=== PATIENT | male | born 1960 | race American Indian/Alaskan Native ===

== ENCOUNTER 2019-03-08 17:44 | Inpatient (IN) | payer OTHER ==
--- NOTE | 2019-03-08 18:12 | Emergency Department Report ---
Blank Doc - Documentation Documentation: 58 y/o male with pmh of NIDDM Was at PCP office today and advised to come to ED due to tachycardia. C/o of nausea, palpitations and sweats. Plan labs, cxr and Main
[2019-03-08 18:35] LABS: Basophils # (Auto) 0.1 K/mm3 (0.0-0.1); Basophils % (Auto) 0.6 % (0.0-1.8); Eosinophils # (Auto) 0.1 K/mm3 (0.0-0.4); Eosinophils % (Auto) 0.8 % (0.0-4.3); Hematocrit 37.4 % (35.5-45.6); Hemoglobin 12.9 gm/dl (11.8-15.2); Lymphocytes # (Auto) 1.4 K/mm3 (1.2-5.4); Lymphocytes % (Auto) 13.7 % (13.4-35.0); Mean Corpuscular HGB Conc 34 % (32-34); Mean Corpuscular Volume 90 fl (84-94); Monocytes % (Auto) 9.5 % (0.0-7.3); Platelet Count 310 K/mm3 (140-440); Red Blood Count 4.17 M/mm3 (3.65-5.03); Red Cell Distribution Width 14.9 % (13.2-15.2)
[2019-03-08 18:41] LABS: INR 1.16 (0.87-1.13)
[2019-03-08 19:23] LABS: Creatine Kinase MB 2.2 ng/mL (0.0-4.0)
[2019-03-08 19:36] LABS: Free T4 (Free Thyroxine) 1.16 ng/dL (0.76-1.46)
--- NOTE | 2019-03-08 20:23 | XRay Report ---
PROCEDURE: XR CHEST ROUTINE 2V TECHNIQUE: AP and lateral views of the chest were obtained HISTORY: palpitations COMPARISONS: FINDINGS: Cardiac and mediastinal contours are unremarkable. No focal pulmonary infiltrate identified. No pleur al fluid collection seen. Pulmonary vasculature is unremarkable. IMPRESSION: Negative two-view chest. This document is electronically signed by Viraj Bill MD., March 08 2019 08:21:02 PM ET
--- NOTE | 2019-03-08 20:56 | Emergency Department Report ---
ED Palpitations HPI - General Chief Complaint: Arrhythmia/Palpitations Stated Complaint: PALPATATION (HEART)COLD SWEAT Time Seen by Provider: 03/08/19 20:45 Source: patient Mode of arrival: Ambulatory Limitations: No Limitations - History of Present Illness Initial Comments: Patient is a 58-year-old male that presents emergency with complaints of palpit ations and tachycardia. Patient states she was seen at an urgent care and sent over here for further evaluation by Dr. Mishra. Patient states he's also having dyspnea on exertion and diaphoresis and nausea without vomiting. Patient states all the symptoms started yesterday and are worsening. Patient denies chest pain. Patient denies abdominal pain. Patient denies dizziness. Patient denies blurry vision. Patient states she has a history of hypertension and diabetes. MD Complaint: rapid heart beat, palpitations -: Sudden Context: occured during rest, occured during exertion Associated Symptoms: diaphoresis. denies: chest pain, syncope, near-syncope, cough, parasthesias, feeling of impending doom - Related Data Allergies Allergy/AdvReac Type Severity Reaction Status Date / Time No Known Allergies Allergy Unverified 03/08/19 18:13 ED Review of Systems ROS: Stated complaint: PALPATATION (HEART)COLD SWEAT Other details as noted in HPI Constitutional: diaphoresis. denies: chills, fever Eyes: denies: eye pain, eye discharge, vision change ENT: denies: ear pain, throat pain Respiratory: SOB with exertion. denies: cough, SOB at rest, wheezing Cardiovascular: palpitations. denies: chest pain Endocrine: no symptoms reported Gastrointestinal: nausea. denies: abdominal pain, vomiting, diarrhea Genitourinary: denies: urgency, dysuria Musculoskeletal: denies: back pain, joint swelling, arthralgia Skin: denies: rash, lesions Neurological: denies: headache, weakness, paresthesias Psychiatric: denies: anxiety, depression Hematological/Lymphatic: denies: easy bleeding, easy bruising ED Past Medical Hx - Past Medical History Previous Medical History?: Yes Hx Hypertension: Yes Hx Diabetes: Yes Additional medical history: acoustic neuroma - Surgical History Past Surgical History?: Yes Additional Surgical History: right acoustic neuroma - Family History Family history: no significant - Social History Smoking Status: Never Smoker Substance Use Type: Alcohol ED Physical Exam - General Limitations: No Limitations General appearance: alert, in no apparent distress - Head Head exam: Present: atraumatic, normocephalic - Eye Eye exam: Present: normal appearance - ENT ENT exam: Present: mucous membranes moist - Neck Neck exam: Present: normal inspection - Respiratory Respiratory exam: Present: normal lung sounds bilaterally. Absent: respiratory distress - Cardiovascular Cardiovascular Exam: Present: regular rate, normal rhythm. Absent: systolic murmur, diastolic murmur, rubs, gallop - GI/Abdominal GI/Abdominal exam: Present: soft, normal bowel sounds. Absent: distended, tenderness, guarding - Rectal Rectal exam: Present: deferred - Extremities Exam Extremities exam: Present: normal inspection - Back Exam Back exam: Present: normal inspection - Neurological Exam Neurological exam: Present: alert, oriented X3 - Psychiatric Psychiatric exam: Present: normal affect, normal mood - Skin Skin exam: Present: warm, dry, intact, normal color. Absent: rash ED Course Vital Signs 03/08/19 03/08/19 03/08/19 18:09 21:16 21:30 Temperature 97.7 F Pulse Rate 128 H 91 H 91 H Respiratory 18 19 19 Rate Blood Pressure 141/97 150/83 132/81 O2 Sat by Pulse 98 98 98 Oximetry 03/08/19 03/08/19 03/08/19 21:46 22:00 22:16 Temperature Pulse Rate 94 H 91 H 92 H Respiratory 20 20 18 Rate Blood Pressure 132/81 131/77 131/77 O2 Sat by Pulse 97 97 99 Oximetry 03/08/19 22:30 Temperature Pulse Rate 93 H Respiratory 12 Rate Blood Pressure 139/76 O2 Sat by Pulse 100 Oximetry - Reevaluation(s) Reevaluation #1: Discussed all results with patient. Patient agrees with plan of care and admission. 03/08/19 22:11 - Consultations Consultation #1: Discussed case with patient's primary care doctor. Dr. Mishra states to admit the patient to telemetry for observation. Bridge orders will be placed 03/08/19 20:56 Discussed case again with Dr. Mishra. 03/08/19 22:12 ED Medical Decision Making - Lab Data Result diagrams: 03/08/19 18:13 03/08/19 21:00 - EKG Data -: EKG Interpreted by [place] EKG shows normal: sinus rhythm, axis, intervals, QRS complexes, ST-T waves Rate: tachycardia - Medical Decision Making Patient is a 58-year-old male that presents to emergency with complaints of palpitations and tachycardia and dyspnea on exertion. Patient found to have sinus tach on EKG. Patient's labs unremarkable except for elevated creatinine. Patient given fluids. Heart rate improved. Patient's other labs unremarkable. - Differential Diagnosis tachycardia. Dehydration. SHAFFER. Palpitations Critical Care Time: Yes Critical care attestation.: If time is entered above; I have spent that time in minutes in the direct care of this critically ill patient, excluding procedure time. Critical Care Time: 35 minutes ED Disposition Clinical Impression: Tachycardia, Dehydration, SHAFFER (dyspnea on exertion), Nausea alone Disposition: OP ADMIT IP TO THIS HOSP Is pt being admited?: Yes Does the pt Need Aspirin: No Condition: Critical Time of Disposition: 22:13
[2019-03-08 22:00] LABS: Creatine Kinase MB 2.2 ng/mL (0.0-4.0)
[2019-03-08 22:03] LABS: Albumin 4.4 g/dL (3.9-5); Calcium 9.5 mg/dL (8.4-10.2)
[2019-03-08 23:11] LABS: Bilirubin,Urine NEG (Negative); Blood,Urine NEG (Negative); Color,Urine Amber (Yellow); Mucus,Urine FEW /HPF; WBC,Urine < 1.0 /HPF (0.0-6.0)
[2019-03-08 23:16] LABS: Amphetamine Screen,Urine PRESUMPTIVE NEGATIVE; Benzodiazepines Screen,Urine PRESUMPTIVE NEGATIVE; Cannabinoid Screen,Urine PRESUMPTIVE NEGATIVE; Cocaine Screen,Urine PRESUMPTIVE NEGATIVE; Methadone Screen,Urine PRESUMPTIVE NEGATIVE; Opiate Screen,Urine PRESUMPTIVE NEGATIVE
[2019-03-09] MEDS ORDERED: NACL 0.9% 1000 ML 1,000 ML IV ONE (03:00)
[2019-03-09] MEDS ORDERED: NACL 0.9% 1000 ML 1,000 ML ONE (04:07)
--- NOTE | 2019-03-09 07:10 | History and Physical Report ---
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 Patient who was seen in the Urgent Care was advised to proceed to the emergency department. Has occasional chest pain. No orthopnea or paroxysmal nocturnal dyspnea. Denies any polyuria, polydipsia or polyphagia. No fever, nausea, vomiting or abdominal pain. I did on presentation to the emergency department pulse was found to be 128. EKG shows sinus tachycardia. There are no ST segment changes. Blood sugar was 176. Total bilirubin was 2.0. Total CK was 309. Troponin T was 0.01. BNP was 22.7. TSH and T4 were normal. Urinalysis showed concentrated urine with urine specific gravity of 1.033. Glycosuria over 500. Urine drug screen was negative. Admission was therefore requested. Past History Past Medical History: diabetes, hypertension, other (palpitation ) Past Surgical History: No surgical history Social history: denies: smoking, alcohol abuse (however drinks occasionally), prescription drug abuse Family history: no significant family history Medications and Allergies Allergies Allergy/AdvReac Type Severity Reaction Status Date / Time No Known Allergies Allergy Unverified 03/08/19 18:13 Home Medications Medication Instructions Recorded Confirmed Last Taken Type Amlodipine-Valsartan 10-160 mg 03/09/19 Unknown History Atorvastatin 03/09/19 Unknown History Hydrochlorothiazide 03/09/19 Unknown History Xigduo Xr 5 mg-1,000 mg Tablet 03/09/19 Unknown History Active Meds: Review of systems Constitutional: Well Nourished and Well developed. Head: NC/ AT Eyes: Denies any visual impairments. No discharge from the eyes Nose: Denies any rhinorrhea or epistaxis Throats: Denies any post nasal drainage. Ears: Hearing deficits right ear from acoustic neuroma Cardiovascular system: Denies any chest pain, has palpitation with occasional shortness of breath, denies orthopnea, paroxysmal nocturnal dyspnea, Respiratory system: Denies any cough, difficulty breathing, wheezing, pleuritic chest pain, Gastrointestinal system: Denies any abdominal pain, nausea vomiting, hematemesis or melena. Neurological system: Denies any headache, slurred speech, facial droop, lateralizing weakness Genitalia system: Denies any dysuria, urinary frequency or urgency, urethral discharge Skin: No rashes, hyperpigmented spots. Hematological: Denies any cervical tenderness hemorrhages or petechia. Immunological: Denies any multiple septic spots, Lymphatic: Denies any generalized lymphadenopathy. Endocrine: Denies any polyuria, polydipsia, polyphagia. No heat or cold intolerance. Musculoskeletal system: No joint pain or swelling. Psych: No visual, tactile, auditory or hallucination Exam - Physical Exam Narrative exam: Constitutional: Well-nourished well-developed. In no distress Head: Normocephalic atraumatic Eyes: Pupils are equal round and reactive to light Nose: No enlarged turbinates, no septal deviation. Mouth: Moist mucous membranes. Neck: Supple no thyromegaly. No bruit. No JVD Heart: Regular rate and rhythm, S1-S2 normal. No rubs murmurs or gallop Lungs: Clear to auscultation bilaterally. no rales or rhonchi Abdomen: Soft, nontender. Bowel sound are present. Extremities: No edema, no cyanosis, no clubbing. Neuro: Alert oriented Oriented x3. No focal sensory or motor deficit. Skin: No rashes or hyperpigmented spots Musculoskeletal system: No joint pain or swelling Hematological: No petechia or subcutanous hemorrhages. Immunological: No multiple septic spots on the skin Lymphatic: No generalized lymphadenopathy Psychiatry: Euthymic. Calm. - Constitutional Vitals: Temp Pulse Resp BP Pulse Ox 97.7 F 93 H 12 139/76 100 03/08/19 18:09 03/08/19 22:30 03/08/19 22:30 03/08/19 22:30 03/08/19 22:30 Results - Labs CBC & Chem 7: 03/10/19 04:58 03/10/19 04:58 Labs: Abnormal lab results 03/08/19 03/08/19 03/08/19 Range/Units 18:13 18:13 18:13 [place] % (Auto) 9.5 H (0.0-7.3) % [place] # 1.0 H (0.0-0.8) K/mm3 Seg Neutrophils % 75.4 H (40.0-70.0) % Seg Neutrophils # 7.8 H (1.8-7.7) K/mm3 PT 15.5 H (12.2-14.9) Sec. INR 1.16 H (0.87-1.13) Carbon Dioxide (22-30) mmol/L Glucose (75-100) mg/dL Total Bilirubin (0.1-1.2) mg/dL Alkaline Phosphatase (35-129) units/L Total Creatine Kinase 309 H (55-170) units/L Ur Specific [place] (1.003-1.030) 03/08/19 03/08/19 03/08/19 Range/Units 21:00 21:00 22:40 [place] % (Auto) (0.0-7.3) % [place] # (0.0-0.8) K/mm3 Seg Neutrophils % (40.0-70.0) % Seg Neutrophils # (1.8-7.7) K/mm3 PT (12.2-14.9) Sec. INR (0.87-1.13) Carbon Dioxide 20 L (22-30) mmol/L Glucose 176 H (75-100) mg/dL Total Bilirubin 2.00 H (0.1-1.2) mg/dL Alkaline Phosphatase 199 H (35-129) units/L Total Creatine Kinase 270 H (55-170) units/L Ur Specific [place] 1.033 H (1.003-1.030) Assessment and Plan 58-year-old male with a history of diabetes mellitus and acoustic neuroma right ear who was seen in urgent care center for palpitation and diaphoresis and occasional chest discomfort. Referred to emergency room side [facility]. - Chest discomforts Serial cardiac enzymes were normal EKG shows sinus tachycardia Recommendation on oxygen and nitroglycerin and aspirin and morphine. Stress thallium. Echocardiogram.\ -Palpitation with shortness of breath EKG shows sinus tachycardia TSH and T4 were normal Urine drug screen was normal Continue with IV hydration - Dehydration Urine concentrated with elevated specific gravity IV hydration - Hyperbilirubinemia IV hydration Hypatobiliary ultrasound Trend - Type 2 diabetes mellitus A1c done in the urgent care center yesterday for 03/08/19 was 6.5% Sliding scale insulin Consistent carbohydrates diet - History of acoustic neuroma and hearing loss right ear Stable - DVT Prophylaxis with Lovenox and GI Pepcid CODE STATUS: Full code Time spent 35 minutes
[2019-03-09 08:12] LABS: Basophils # (Auto) 0.1 K/mm3 (0.0-0.1); Basophils % (Auto) 0.8 % (0.0-1.8); Eosinophils # (Auto) 0.1 K/mm3 (0.0-0.4); Eosinophils % (Auto) 1.4 % (0.0-4.3); Hemoglobin 11.3 gm/dl (11.8-15.2); Lymphocytes # (Auto) 1.3 K/mm3 (1.2-5.4); Lymphocytes % (Auto) 16.7 % (13.4-35.0); Mean Corpuscular HGB Conc 33 % (32-34); Mean Corpuscular Volume 91 fl (84-94); Monocytes # (Auto) 0.9 K/mm3 (0.0-0.8); Platelet Count 270 K/mm3 (140-440); Red Blood Count 3.74 M/mm3 (3.65-5.03); Red Cell Distribution Width 14.4 % (13.2-15.2)
[2019-03-09 08:22] LABS: INR 1.17 (0.87-1.13)
[2019-03-09 08:34] LABS: BUN/Creatinine Ratio 15; Blood Urea Nitrogen 16 mg/dL (9-20); Calcium 8.8 mg/dL (8.4-10.2); Chol/HDL Ratio 2.47 %; HDL Cholesterol 44 mg/dL (40-59); Hemolysis Index 3; LDL Cholesterol,Direct 58 mg/dL (50-130)
[2019-03-09] MEDS ORDERED: LEXISCAN IV ONE ×2 (10:45→11:35)
--- NOTE | 2019-03-09 13:46 | Event Note ---
Date: 03/09/19 Detailed cardiology consultation dictated. Pt presented with c/o dyspnea, palpitations, diaphoresis, n/v. S/p lexiscan MPI stress test this AM which was negative. Echo reviewed with no gross abnormalities. Pt noted to be in persistent sinus tachycardia. DDimer elevated. Obtain chest CTA to r/o PE. Candy GONZALES NP / DR. HERNANDEZ
[2019-03-09] MEDS: ZESTRIL PO SCH (15:00)
[2019-03-09] MEDS: LOVENOX SUB-Q SCH (15:00)
[2019-03-09] MEDS: NACL 0.45% 1000 ML 2,000 ML IV SCH (23:28)
--- NOTE | 2019-03-09 23:29 | Cat Scan Report ---
PROCEDURE: CT ANGIO CHEST TECHNIQUE: Computerized tomographic angiography of the chest was performed after the IV injection of iodinated nonionic contrast including image processing. The image data was postprocessed using 2-di mensional multiplanar reformatted (MPR) and 3-dimensional (MIP and/or volume rendered) techniques. Au tomated exposure control, adjustment of mA and/or kV according to patient size, or iterative reconstr uction dose optimization techniques were utilized. HISTORY: SOB, palpitations, tachycardia, elevated DDimer COMPARISONS: None . FINDINGS: Heart and pericardium: Normal. Thoracic aorta: Normal. Pulmonary vasculature: There is no evidence of pulmonary arterial emboli. Lymph nodes: No enlarged thoracic lymph nodes. Lungs: The lungs are clear. No infiltrate, effusion or pneumothorax. The central airway is patent. Pleural space: No effusion, thickening, or pneumothorax. Musculoskeletal structures: No significant abnormality. Upper abdominal structures: The liver size is normal. There is mixed attenuation and some nodularity identified exterior right lobe of the liver as well as portion of the left lobe liver. Not completel y evaluated on this study. Further evaluation of upper abdomen utilizing CT with and without contrast appropriate. The size of the head of pancreas is slightly pronounced with an area of hypoattenuation identified. Further imaging of the pancreatic head is also recommended... IMPRESSION: There is no evidence of pulmonary arterial emboli. The lungs are clear without infiltrate, effusion or pneumothorax. Nodularity and mixed attenuation within the liver is identified. This is not fully evaluated on this study. Further evaluation with a dedicated multiphasic abdomen and pelvis CT with and without contras t is recommended. The head of pancreas is slightly pronounced in size with an area of hypoattenuation identified. This is also not fully evaluated on this study. . The above findings are discussed with patient's floor nurse Neli at the time of dictation [id number] [facility] standard time on 03/09/2019 This document is electronically signed by Ana Paula Freeman DO., March 09 2019 11:27:22 PM ET
--- NOTE | 2019-03-10 05:54 | Consultation ---
ROOM NUMBER: [id number]. CONSULTATION REQUESTED BY: Rosie Mishra MD CONSULTING PHYSICIAN: Dr. Candy Osorio. HISTORY OF PRESENT ILLNESS: This is a 58-year-old -Polish male, who is now presenting to the hospital with complaints of palpitations for further evaluation and management. The patient states that on Saturday that is the day before, he woke up with palpitations when his heart was racing. He felt weak and tired. He did not have any chest pain or shortness of breath. No abdominal pain, nausea, vomiting. He had profuse diaphoresis and later, he felt a little nauseous, but no vomiting. His symptoms persisted for a while, so he was resting at home. He seems to feel a little bit better, but then the symptoms became worse in the night. So, he decided to stay home and go to the urgent care in the morning, which he did. The patient was evaluated in the urgent care and was sent to the Emergency Room for further evaluation and management. On arrival in the Emergency Room, the patient was noted to have a heart rate of 128 beats per minute and he continued to complain of feeling weak, tired and continued to complain of palpitations, but no chest pain or shortness of breath. No dizziness or syncope. Diaphoresis noted. The patient remains tachycardic. No prior history of similar episodes. PAST MEDICAL HISTORY: The patient does give history of hypertension and hyperlipidemia for which he is on medication. He also gives history of prediabetes. PAST SURGICAL HISTORY: History of acoustic neuroma in the past. The patient denied any fever or chills. No coughing or wheezing. FAMILY HISTORY: Positive for heart problems in his father, mother and sister. SOCIAL HISTORY: The patient is retired. He is a nonsmoker and nonalcoholic. ALLERGIES: None known to medications. MEDICATIONS: At the time of admission, the patient was on his blood pressure medication and statin. REVIEW OF SYSTEMS: CARDIOVASCULAR: As described above. RESPIRATORY: The patient denies any history of wheezing or asthma. No GI or complaints at the present time. PHYSICAL EXAMINATION: GENERAL: This is a 58-year-old -Polish male, well-built, well nourished, in no acute distress at the present time. The patient is conscious, alert, oriented, afebrile. VITAL SIGNS: Normal and stable. SKIN: Warm and dry. HEENT: Pupils are reactive. NECK: Supple. Both carotids are well palpable without any evidence of bruit. No JVD. CHEST: Lungs are clear. HEART: S1, S2 heard well. No significant murmur or gallop. Tachycardia noted. ABDOMEN: Soft and nontender. Bowel sounds present. EXTREMITIES: No edema, no calf tenderness. Good peripheral pulses. NEUROLOGIC: Evaluation was grossly within normal limits. RECTAL: Examination not done at this time. IMAGING: EKG done showed sinus tachycardia, otherwise, normal ECG. LABORATORY DATA: The patient's hemoglobin was 12.9, hematocrit 37.4 with WBC count of 10,400. The patient's BMP showed a BUN of 19, creatinine 1.5 and sodium was 138, potassium 4.4 and blood sugar was 176. The patient's bilirubin was mildly elevated at 2.0. Glucose was 136. Alkaline phosphatase was mildly elevated at 199. CK is normal. The patient's troponins were within normal limits. IMPRESSION: 1. Palpitations ? cause. 2. Mild chest discomfort. 3. Dehydration. 4. Hyperbilirubinemia. 5. Hypertension. 6. Hyperlipidemia. 7. History of prediabetes. 8. History of acoustic neuroma. PLAN: This is a 58-year-old -Polish male with history of hypertension, hyperlipidemia and prediabetes, who is now presenting to the hospital with complaints of palpitations or sudden onset for further evaluation and management. The patient had profuse diaphoresis with that. He does not have any complaint of chest pain or shortness of breath. EKG showed no acute changes. Enzymes were negative. We will proceed with stress thallium test as ordered to rule out a cardiac etiology. We will check the echocardiogram to assess his LV function, etc. Since the patient is not really anemic and thyroid function is normal, I do not have a definite explanation for persistent tachycardia. We will consider doing a CT scan of the chest to rule out pulmonary embolism. Prior to that, we will obtain a D-dimer, and if it is abnormal, we will proceed with CT scan of the chest to rule out pulmonary embolism. I have discussed all this in detail with the patient. Pros and cons noted. We will follow the patient along with you. JOB# [id number] MORA/MICHA
[2019-03-10 05:58] LABS: Basophils % (Auto) 0.8 % (0.0-1.8); Eosinophils # (Auto) 0.1 K/mm3 (0.0-0.4); Eosinophils % (Auto) 2.4 % (0.0-4.3); Hematocrit 31.5 % (35.5-45.6); Hemoglobin 10.5 gm/dl (11.8-15.2); Lymphocytes # (Auto) 1.1 K/mm3 (1.2-5.4); Lymphocytes % (Auto) 18.1 % (13.4-35.0); Mean Corpuscular HGB Conc 33 % (32-34); Mean Corpuscular Volume 92 fl (84-94); Monocytes # (Auto) 0.7 K/mm3 (0.0-0.8); Monocytes % (Auto) 10.9 % (0.0-7.3); Platelet Count 285 K/mm3 (140-440); Red Blood Count 3.45 M/mm3 (3.65-5.03); Red Cell Distribution Width 14.4 % (13.2-15.2)
[2019-03-10 06:25] LABS: BUN/Creatinine Ratio 13; Blood Urea Nitrogen 13 mg/dL (9-20); Calcium 9.1 mg/dL (8.4-10.2); Hemolysis Index 2
[2019-03-10 06:56] LABS: Alanine Aminotransferase 25 units/L (7-56); Albumin 3.3 g/dL (3.9-5)
--- NOTE | 2019-03-10 08:25 | Progress Note ---
Assessment and Plan 58-year-old male with a history of diabetes mellitus and acoustic neuroma right ear who was seen in urgent care center for palpitation and diaphoresis and occasional chest discomfort. Referred to emergency room [facility]. - Chest discomforts Normla Lesxiscan test EKG shows sinus tachycardia Echocardiogram - showed LVEF of 55-60% with impaired relaxation. -Palpitation with shortness of breath EKG shows sinus tachycardia TSH and T4 were normal Urine drug screen was normal CTA chest was negative for PE however showed hepatic nodularities Continue with IV hydration - Multipled mixed nodularity and attenuation of the liver with enlarged head of pancreas identified on CTA chest done b/c of elevated D-dimer CT abdomen and pelvis with contrast ordered - Dehydration Urine concentrated with elevated specific gravity IV hydration - Hyperbilirubinemia improved seciondary to mixed nodularity Continue IV hydration - Type 2 diabetes mellitus A1c done in the urgent care center yesterday for 03/08/19 was 6.5% Sliding scale insulin Consistent carbohydrates diet - History of acoustic neuroma and hearing loss right ear Stable - DVT Prophylaxis with Lovenox and GI Pepcid CODE STATUS: Full code Time spent 30 minutes Subjective Date of service: 03/10/19 Principal diagnosis: chest discomfort, palpitation and diaphoresis Interval history: No more chest pain. No orthorpnea or PND Objective - Exam Narrative Exam: Constitutional: Well-nourished well-developed. In no distress Head: Normocephalic atraumatic Eyes: Pupils are equal round and reactive to light Nose: No enlarged turbinates, no septal deviation. Mouth: Moist mucous membranes. Neck: Supple no thyromegaly. No bruit. No JVD Heart: Regular rate and rhythm, S1-S2 normal. No rubs murmurs or gallop Lungs: Clear to auscultation bilaterally. no rales or rhonchi Abdomen: Soft, nontender. Bowel sound are present. Extremities: No edema, no cyanosis, no clubbing. Neuro: Alert oriented Oriented x3. No focal sensory or motor deficit. Skin: No rashes or hyperpigmented spots Musculoskeletal system: No joint pain or swelling Hematological: No petechia or subcutanous hemorrhages. Immunological: No multiple septic spots on the skin Lymphatic: No generalized lymphadenopathy Psychiatry: Euthymic. Calm. - Constitutional Vitals: Vital Signs - 12hr 03/09/19 03/10/1919 20:50 00:00 04:36 Temperature 99.0 F 98.0 F Pulse Rate 99 H 98 H Pulse Rate [ 80 Apical] Respiratory 20 20 Rate Blood Pressure 123/80 123/79 O2 Sat by Pulse 98 97 100 Oximetry - Labs CBC & Chem 7: 03/10/19 04:58 03/10/19 04:58 Labs: Abnormal lab results 03/09/19 03/09/19 03/09/19 Range/Units 08:03 08:03 08:03 RBC (3.65-5.03) M/mm3 Hgb (11.8-15.2) gm/dl Hct (35.5-45.6) % [place] % (Auto) (0.0-7.3) % Lymph # (1.2-5.4) K/mm3 PT 15.6 H (12.2-14.9) Sec. INR 1.17 H (0.87-1.13) D-Dimer 2972.81 H (0-234) ng/mlDDU Sodium 136 L (137-145) mmol/L Carbon Dioxide (22-30) mmol/L Glucose 154 H (75-100) mg/dL Total Bilirubin (0.1-1.2) mg/dL Alkaline Phosphatase (35-129) units/L Albumin (3.9-5) g/dL 03/10/19 03/10/19 Range/Units 04:58 04:58 RBC 3.45 L (3.65-5.03) M/mm3 Hgb 10.5 L (11.8-15.2) gm/dl Hct 31.5 L (35.5-45.6) % [place] % (Auto) 10.9 H (0.0-7.3) % Lymph # 1.1 L (1.2-5.4) K/mm3 PT (12.2-14.9) Sec. INR (0.87-1.13) D-Dimer (0-234) ng/mlDDU Sodium 136 L (137-145) mmol/L Carbon Dioxide 21 L (22-30) mmol/L Glucose 131 H (75-100) mg/dL Total Bilirubin 1.30 H (0.1-1.2) mg/dL Alkaline Phosphatase 190 H (35-129) units/L Albumin 3.3 L (3.9-5) g/dL
[2019-03-10] MEDS: LOVENOX SUB-Q SCH (09:59)
[2019-03-10] MEDS: SODIUM CHLORIDE FLUSH SYRINGE 10 ML IV PRN (09:59)
[2019-03-10] MEDS: ECOTRIN PO SCH (10:27)
[2019-03-10] MEDS: ZESTRIL PO SCH (10:28)
[2019-03-10] MEDS: NACL 0.45% 1000 ML 2,000 ML IV SCH (10:31)
--- NOTE | 2019-03-10 10:46 | Progress Note ---
Assessment and Plan S/p lexiscan MPI stress test yesterday which was negative. Echo reviewed with no gross abnormalities. Sinus tachycardia improved. Chest CTA negative for PE, other incidental findings in abdomen noted. Abdomen CT pending. Currently stable cardiac status. Pt may discharge home from cardiology standpoint. Primary team to f/u abdomen CT. Recommend pt follow up in our office with Dr. Osorio within 1-2 weeks of hospital discharge ([phone]). The patient has been seen in conjunction with Dr. Osorio who agrees with the assessment and plan of care. - Patient Problems (1) Chest pain Current Visit: Yes Status: Resolved (2) Palpitations Current Visit: Yes Status: Acute (3) Hyperbilirubinemia Current Visit: Yes Status: Acute (4) HTN (hypertension) Current Visit: Yes Status: Chronic (5) Hyperlipidemia Current Visit: Yes Status: Chronic (6) Pre-diabetes Current Visit: Yes Status: Chronic (7) Acoustic neuroma Current Visit: Yes Status: Chronic (8) Dehydration Current Visit: Yes Status: Acute Subjective Date of service: 03/10/19 Principal diagnosis: chest discomfort, palpitation and diaphoresis Interval history: pt resting in bed, no current cardiac complaints. in SR on tele. Objective Last Vital Signs Temp 99.4 F 03/10/19 09:11 Pulse 97 H 03/10/19 10:28 Resp 18 03/10/19 09:11 BP 141/74 03/10/19 10:28 Pulse Ox 98 03/10/19 09:04 - Physical Examination General: No Apparent Distress HEENT: Positive: PERRL, Normocephaly, Mucus Membranes Moist Neck: Positive: neck supple, trachea midline Cardiac: Positive: Reg Rate and Rhythm, S1/S2 Lungs: Positive: clear to auscultation Neuro: Positive: Grossly Intact Abdomen: Positive: Soft. Negative: Tender Skin: Negative: Rash Musculoskeletal: No Pain - Labs and Meds Cardiac Enzymes 03/10/19 Range/Units 04:58 AST 34 (5-40) units/L CBC 03/10/19 Range/Units 04:58 WBC 6.1 (4.5-11.0) K/mm3 RBC 3.45 L (3.65-5.03) M/mm3 Hgb 10.5 L (11.8-15.2) gm/dl Hct 31.5 L (35.5-45.6) % Plt Count 285 (140-440) K/mm3 Lymph # 1.1 L (1.2-5.4) K/mm3 [place] # 0.7 (0.0-0.8) K/mm3 Eos # 0.1 (0.0-0.4) K/mm3 Baso # 0.0 (0.0-0.1) K/mm3 Comprehensive Metabolic Panel 03/10/19 Range/Units 04:58 Sodium 136 L (137-145) mmol/L Potassium 3.9 (3.6-5.0) mmol/L Chloride 99.9 (98-107) mmol/L Carbon Dioxide 21 L (22-30) mmol/L BUN 13 (9-20) mg/dL Creatinine 1.0 (0.8-1.5) mg/dL Glucose 131 H (75-100) mg/dL Calcium 9.1 (8.4-10.2) mg/dL AST 34 (5-40) units/L ALT 25 (7-56) units/L Alkaline Phosphatase 190 H (35-129) units/L Total Protein 6.8 (6.3-8.2) g/dL Albumin 3.3 L (3.9-5) g/dL - Telemetry EKG Rhythm: Sinus Rhythm
[2019-03-11 05:51] LABS: Basophils # (Auto) 0.1 K/mm3 (0.0-0.1); Basophils % (Auto) 1.5 % (0.0-1.8); Eosinophils # (Auto) 0.2 K/mm3 (0.0-0.4); Eosinophils % (Auto) 4.4 % (0.0-4.3); Hematocrit 30.7 % (35.5-45.6); Hemoglobin 10.2 gm/dl (11.8-15.2); Lymphocytes % (Auto) 20.9 % (13.4-35.0); Mean Corpuscular HGB Conc 33 % (32-34); Mean Corpuscular Volume 91 fl (84-94); Monocytes # (Auto) 0.6 K/mm3 (0.0-0.8); Monocytes % (Auto) 12.8 % (0.0-7.3); Platelet Count 288 K/mm3 (140-440); Red Blood Count 3.38 M/mm3 (3.65-5.03); Red Cell Distribution Width 14.3 % (13.2-15.2)
[2019-03-11 06:17] LABS: Alanine Aminotransferase 58 units/L (7-56); Albumin 3.1 g/dL (3.9-5); BUN/Creatinine Ratio 11; Blood Urea Nitrogen 13 mg/dL (9-20); Calcium 8.9 mg/dL (8.4-10.2); Hemolysis Index 0
--- NOTE | 2019-03-11 09:24 | Progress Note ---
Assessment and Plan 58-year-old male with a history of diabetes mellitus and acoustic neuroma right ear who was seen in urgent care center for palpitation and diaphoresis and occasional chest discomfort. Referred to emergency room [facility]. + EKG 03/08/19: Showed sinus tachycardia at 144/min + Lexiscan stress test 03/09/19: Showed no evidence of ischemia + Echocardiogram 03/09/19: Normal left ventricular function and ejection fraction of 55-60% with impaired relaxation + CT angiomata 03/09/19: Showed multiple nodularititie and attenuation in the liver with enlarged head of pancreas - Chest discomforts Normal Lesxiscan test EKG shows sinus tachycardia Echocardiogram - showed LVEF of 55-60% with impaired relaxation. -Palpitation with shortness of breath EKG shows sinus tachycardia TSH and T4 were normal Urine drug screen was normal CTA chest was negative for PE however showed hepatic nodularities Continue with IV hydration - Multipled mixed nodularity and attenuation of the liver with enlarged head of pancreas identified on CTA chest done b/c of elevated D-dimer CT abdomen and pelvis with contrast ordered. f/u with report. 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 No orthorpnea or PND. Objective - Exam Narrative Exam: Constitutional: Well-nourished well-developed. In no distress Head: Normocephalic atraumatic Eyes: Pupils are equal round and reactive to light Nose: No enlarged turbinates, no septal deviation. Mouth: Moist mucous membranes. Neck: Supple no thyromegaly. No bruit. No JVD Heart: Regular rate and rhythm, S1-S2 normal. No rubs murmurs or gallop Lungs: Clear to auscultation bilaterally. no rales or rhonchi Abdomen: Soft, nontender. Bowel sound are present. Extremities: No edema, no cyanosis, no clubbing. Neuro: Alert oriented Oriented x3. No focal sensory or motor deficit. Skin: No rashes or hyperpigmented spots Musculoskeletal system: No joint pain or swelling Hematological: No petechia or subcutanous hemorrhages. Immunological: No multiple septic spots on the skin Lymphatic: No generalized lymphadenopathy Psychiatry: Euthymic. Calm. - Constitutional Vitals: Vital Signs - 12hr 03/10/19 03/11/19 03/11/19 23:33 04:12 08:15 Temperature 99.2 F 97.0 F L 98.3 F Pulse Rate 97 H 95 H 95 H Respiratory 18 18 16 Rate Blood Pressure 133/72 133/77 143/82 O2 Sat by Pulse 96 96 98 Oximetry - Labs CBC & Chem 7: 03/11/19 04:47 03/11/19 04:47 Labs: Abnormal lab results 03/10/19 03/10/19 03/10/19 Range/Units 09:06 11:54 21:28 RBC (3.65-5.03) M/mm3 Hgb (11.8-15.2) gm/dl Hct (35.5-45.6) % [place] % (Auto) (0.0-7.3) % Eos % (Auto) (0.0-4.3) % Lymph # (1.2-5.4) K/mm3 Sodium (137-145) mmol/L Carbon Dioxide (22-30) mmol/L Glucose (75-100) mg/dL POC Glucose 131 H 197 H 138 H (70-105) AST (5-40) units/L ALT (7-56) units/L Alkaline Phosphatase (35-129) units/L Albumin (3.9-5) g/dL 03/11/19 03/11/19 03/11/19 Range/Units 04:47 04:47 08:01 RBC 3.38 L (3.65-5.03) M/mm3 Hgb 10.2 L (11.8-15.2) gm/dl Hct 30.7 L (35.5-45.6) % [place] % (Auto) 12.8 H (0.0-7.3) % Eos % (Auto) 4.4 H (0.0-4.3) % Lymph # 1.0 L (1.2-5.4) K/mm3 Sodium 136 L (137-145) mmol/L Carbon Dioxide 21 L (22-30) mmol/L Glucose 150 H (75-100) mg/dL POC Glucose 131 H (70-105) AST 64 H (5-40) units/L ALT 58 H (7-56) units/L Alkaline Phosphatase 282 H (35-129) units/L Albumin 3.1 L (3.9-5) g/dL
[2019-03-11] MEDS: LOVENOX SUB-Q SCH (10:27)
[2019-03-11] MEDS: ECOTRIN PO SCH (10:27)
[2019-03-11] MEDS: ZESTRIL PO SCH (10:27)
--- NOTE | 2019-03-11 20:25 | Cat Scan Report ---
PROCEDURE: CT ABDOMEN PELVIS WO/W CON TECHNIQUE: Computerized axial tomography of the abdomen and pelvis was performed before and after th e IV injection of 100 mL iodinated nonionic contrast. Automated exposure control, adjustment of mA an d/or kV according to patient size, or iterative reconstruction dose optimization techniques were util ized. CT DOSE LENGTH PRODUCT: 4765.8 mGycm HISTORY: Follow up COMPARISONS: None . FINDINGS: There is evidence of hepatomegaly with multiple large irregular inhomogeneously enhancing mass lesion s predominantly involving the right lobe largest measuring 9.2 x 8.9 cm. There is also partial involv ement of the segment 4. Spleen, pancreas and adrenal glands are within normal limits. Left kidney is located in the pelvis without any obstructive uropathy. Right kidney is slightly malrotated without a ny obstructive uropathy. Aorta is of normal caliber. There is no free fluid or free air. Gallbladder is unremarkable. Small bowel loops are within normal limits. There is an eccentric irregular mass les ion involving the sigmoid colon measuring 3.2 x 2.8 cm with small foci of calcification. Appendix is normal. Vertebral height is normal. Moderate degree of degenerative changes are noted involving the l umbar spine. IMPRESSION: A sigmoid mass lesion is suspicious for malignancy. Multiple hepatic lesions are suspicious for metastatic disease. Hepatomegaly is noted. 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
[2019-03-12] MEDS: LOVENOX SUB-Q SCH (09:04)
[2019-03-12] MEDS: ECOTRIN PO SCH (09:04)
[2019-03-12] MEDS: ZESTRIL PO SCH (09:05)
--- NOTE | 2019-03-12 09:19 | Progress Note ---
Assessment and Plan 58-year-old male with a history of diabetes mellitus and acoustic neuroma right ear who was seen in urgent care center for palpitation and diaphoresis and occasional chest discomfort. Referred to emergency room [facility]. + EKG 03/08/19: Showed sinus tachycardia at 144/min + Lexiscan stress test 03/09/19: Showed no evidence of ischemia + Echocardiogram 03/09/19: Normal left ventricular function and ejection fraction of 55-60% with impaired relaxation + CT angio 03/09/19: Showed multiple nodularity and attenuation in the liver with enlarged head of pancreas. CT abdomen and pelvis adviced for rachelle eval + CT abdomen and pelvis showed sigmoid colon mass with possible mets to the liver - Sigmoid mass with possible mets to the liver Discussed with and consulted GI. - Chest discomfort Normal Lesxiscan test EKG shows sinus tachycardia Echocardiogram - showed LVEF of 55-60% with impaired relaxation. -Palpitation with shortness of breath EKG shows sinus tachycardia TSH and T4 were normal Urine drug screen was normal CTA chest was negative for PE however showed hepatic nodularities Continue with IV hydration - Multipled mixed nodularity and attenuation of the liver with enlarged head of pancreas identified on CTA chest done b/c of elevated D-dimer CT abdomen and pelvis with contrast ordered. f/u with report. 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 Time spent 30 minutes Subjective Date of service: 03/12/19 Principal diagnosis: chest discomfort, palpitation and diaphoresis Interval history: No more chest pain all palpitation. No orthorpnea or PND. CT abdomen and pelvis showed sigmoid tumor Objective - Exam Narrative Exam: Constitutional: Well-nourished well-developed.In no distress Head: Normocephalic atraumatic Eyes: Pupils are equal round and reactive to light Nose: No enlarged turbinates, no septal deviation. Mouth: Moist mucous membranes. Neck: Supple no thyromegaly. No bruit. No JVD Heart: Regular rate and rhythm, S1-S2 normal. No rubs murmurs or gallop Lungs: Clear to auscultation bilaterally. no rales or rhonchi Abdomen: Soft, nontender. Bowel sound are present. Extremities: No edema, no cyanosis, no clubbing. Neuro: Alert oriented Oriented x3. No focal sensory or motor deficit. Skin: No rashes or hyperpigmented spots Musculoskeletal system: No joint pain or swelling Hematological: No petechia or subcutanous hemorrhages. Immunological: No multiple septic spots on the skin Lymphatic: No generalized lymphadenopathy Psychiatry: Euthymic. Calm. - Constitutional Vitals: Vital Signs - 12hr 03/12/19 03/12/19 03/12/19 00:29 04:30 08:07 Temperature 98.2 F 98.5 F 98.4 F Pulse Rate 96 H 85 89 Respiratory 18 18 20 Rate Blood Pressure 134/67 137/83 138/84 O2 Sat by Pulse 100 99 98 Oximetry 03/12/19 09:05 Temperature Pulse Rate 89 Respiratory Rate Blood Pressure 138/84 O2 Sat by Pulse Oximetry - Labs CBC & Chem 7: 03/11/19 04:47 03/11/19 04:47 Labs: Abnormal lab results 03/11/19 03/11/19 Range/Units 12:18 16:24 POC Glucose 198 H 184 H (70-105)
--- NOTE | 2019-03-12 11:16 | Gastroenterology Consultation ---
<ROBB BUTCHER - Last Filed: 03/12/19 11:32> History of Present Illness - Reason for Consult Consult date: 03/12/19 colon mass with possible mets to liver Requesting physician: DUANE MARTIN - History of Present Illness Patient is a 58 y/o male with PMH of DM, HTN, and acoustic neuroma right ear who presented to ED with c/o palpitations/tachycardia with associated chest discomfort, SOB, nausea, and diaphoresis. Upon admission, EKG showed sinus tachycardia and cardiac workup was found to be negative for ischemia (stress test 03/09 negative). He then underwent a CTA chest/abdomen/pelvis to r/o PE that showed a sigmoid colon mass with concern for mets to the liver to which GI has been consulted. This morning patient was resting in bed w/o acute distress. He reports wt loss of approximately 20lbs over the past year with occasional co nstipation with a scant amount of bright red blood noted on TP after BMs if straining required. No current constipation or active bleeding. No change in stool caliber. Denies fever, CP, abdominal pain, N/V, jaundice, hematemesis, melena, rectal pain, or diarrhea. Tolerating diet. No prior colonoscopy. No known Fhx of colon CA. Past History Past Medical History: diabetes, hypertension, other (palpitation ) Past Surgical History: Other (right acoustic neuroma) Social history: denies: smoking, alcohol abuse (however drinks occasionally), prescription drug abuse Family history: no significant family history Medications and Allergies Allergies Allergy/AdvReac Type Severity Reaction Status Date / Time No Known Allergies Allergy Unverified 03/08/19 18:13 Home Medications Medication Instructions Recorded Confirmed Last Taken Type Amlodipine-Valsartan 10-160 mg 10 - 160 mg PO Q24HR 03/09/19 03/11/19 03/07/19 09:00 History Atorvastatin 20 mg PO HS MDD 20 03/09/19 03/11/19 03/11/19 History Xigduo Xr 5 mg-1,000 mg Tablet 5 - 1,000 mg PO Q24HR 03/09/19 03/11/19 03/07/19 09:00 History Active Meds: Active Medications Aspirin (Ecotrin) 325 mg PO QDAY [facility] Last Admin: 03/12/19 09:04 Dose: 325 mg Documented by: Enoxaparin Sodium (Lovenox) 40 mg SUB-Q QDAY [facility] Last Admin: 03/12/19 09:04 Dose: 40 mg Documented by: Lisinopril (Zestril) 5 mg PO QDAY [facility] Last Admin: 03/12/19 09:05 Dose: 5 mg Documented by: Sodium Chloride (Sodium Chloride Flush Syringe 10 Ml) 10 ml IV PRN PRN PRN Reason: LINE FLUSH Last Admin: 03/10/19 09:59 Dose: 10 ml Documented by: medications reviewed/updated as required Review of Systems - Review of Systems All systems: negative Gastrointestinal: constipation, BRBPR Exam - Constitutional Vital Signs: Temp Pulse Resp BP Pulse Ox 98.4 F 89 20 138/84 98 03/12/19 08:07 03/12/19 09:05 03/12/19 08:07 03/12/19 09:05 03/12/19 08:07 General appearance: no acute distress - EENT Eyes: PERRL, EOM intact ENT: hearing intact - Respiratory Respiratory: bilateral: CTA - Cardiovascular Rhythm: regular - Gastrointestinal General gastrointestinal: Present: soft, non-tender, non-distended, normal bowel sounds - Neurologic Neurological: alert and oriented x3 - Labs CBC & Chem 7: 03/11/19 04:47 03/11/19 04:47 Lab Results: Laboratory Results - last 24 hr 03/11/19 03/11/19 12:18 16:24 POC Glucose 198 H 184 H Assessment and Plan 1.abnormal CT 2.colon mass with possible mets to the liver -H/H 10.2/30.7-no active signs of bleeding -LFTs-AST 64, ALT 58, Alk phos 282, T.luzma 1.20 -abd CT-showed sigmoid mass lesion suspicious for malignancy and multiple hepatic lesions suspicious for metastatic disease -will schedule for a colonoscopy tomorrow for further evaluation -clear liquids today, then NPO after MN -continue supportive care -will follow <DE BOWMAN - Last Filed: 03/12/19 20:32> Medications and Allergies Active Meds: Active Medications Aspirin (Ecotrin) 325 mg PO QDAY [facility] Last Admin: 03/12/19 09:04 Dose: 325 mg Documented by: Enoxaparin Sodium (Lovenox) 40 mg SUB-Q QDAY [facility] Last Admin: 03/12/19 09:04 Dose: 40 mg Documented by: Lisinopril (Zestril) 5 mg PO QDAY [facility] Last Admin: 03/12/19 09:05 Dose: 5 mg Documented by: Sodium Chloride (Sodium Chloride Flush Syringe 10 Ml) 10 ml IV PRN PRN PRN Reason: LINE FLUSH Last Admin: 03/10/19 09:59 Dose: 10 ml Documented by: Exam - Constitutional Vital Signs: Temp Pulse Resp BP Pulse Ox 98.2 F 87 20 148/91 100 03/12/19 16:09 03/12/19 16:09 03/12/19 16:09 03/12/19 16:09 03/12/19 16:09 - Labs CBC & Chem 7: 03/11/19 04:47 03/11/19 04:47 Assessment and Plan Patient seen and examined. I have reviewed the advanced practitioner's evaluation, assessment, and plan, and agree with them. I note the following additions: Patient admitted with chest discomfort, SOB, nausea, and diaphoresis, but found to have sigmoid colon mass with likely mets to liver. abd exam is benign (soft, +BS), with no evidence for obstruction. Therefore plan on colonoscopy tomorrow for tissue diagnosis and tattooing of the lesion in case required for surgical intervention as well as to ensure no synchronous lesions
[2019-03-12] MEDS ORDERED: GOLYTELY PO ONE (14:00)
--- NOTE | 2019-03-13 08:40 | Progress Note ---
Assessment and Plan 58-year-old male with a history of diabetes mellitus and acoustic neuroma right ear who was seen in urgent care center for palpitation and diaphoresis and occasional chest discomfort. Referred to emergency room [facility]. + EKG 03/08/19: Showed sinus tachycardia at 144/min + Lexiscan stress test 03/09/19: Showed no evidence of ischemia + Echocardiogram 03/09/19: Normal left ventricular function and ejection fraction of 55-60% with impaired relaxation + CT angio 03/09/19: Showed multiple nodularity and attenuation in the liver with enlarged head of pancreas. CT abdomen and pelvis adviced for rachelle eval + CT abdomen and pelvis showed sigmoid colon mass with possible mets to the liver - Sigmoid mass with possible mets to the liver Discussed with and consulted GI. For colonoscopy today - Chest discomfort Normal Lesxiscan test EKG shows sinus tachycardia Echocardiogram - showed LVEF of 55-60% with impaired relaxation. -Palpitation with shortness of breath EKG shows sinus tachycardia TSH and T4 were normal Urine drug screen was normal CTA chest was negative for PE however showed hepatic nodularities Continue with IV hydration - Multipled mixed nodularity and attenuation of the liver with enlarged head of pancreas identified on CTA chest done b/c of elevated D-dimer CT abdomen and pelvis with contrast ordered. f/u with report. 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 Time spent 30 minutes Subjective Date of service: 03/13/19 Principal diagnosis: chest discomfort, palpitation and diaphoresis Interval history: No more chest pain all palpitation. No orthorpnea or PND. CT abdomen and pelvis showed sigmoid tumor. Objective - Exam Narrative Exam: Constitutional: Well-nourished well-developed.In no distress Head: Normocephalic atraumatic Eyes: Pupils are equal round and reactive to light Nose: No enlarged turbinates, no septal deviation. Mouth: Moist mucous membranes. Neck: Supple no thyromegaly. No bruit. No JVD Heart: Regular rate and rhythm, S1-S2 normal. No rubs murmurs or gallop Lungs: Clear to auscultation bilaterally. no rales or rhonchi Abdomen: Soft, nontender. Bowel sound are present. Extremities: No edema, no cyanosis, no clubbing. Neuro: Alert oriented Oriented x3. No focal sensory or motor deficit. Skin: No rashes or hyperpigmented spots Musculoskeletal system: No joint pain or swelling Hematological: No petechia or subcutanous hemorrhages. Immunological: No multiple septic spots on the skin Lymphatic: No generalized lymphadenopathy Psychiatry: Euthymic. Calm. - Constitutional Vitals: Vital Signs - 12hr 03/12/19 03/13/19 03/13/19 22:00 03:34 04:00 Temperature 97.9 F Pulse Rate 84 83 Respiratory 18 18 Rate Blood Pressure 149/78 O2 Sat by Pulse 99 Oximetry 03/13/19 08:30 Temperature 98.4 F Pulse Rate 92 H Respiratory 20 Rate Blood Pressure 155/86 O2 Sat by Pulse 96 Oximetry - Labs CBC & Chem 7: 03/11/19 04:47 03/11/19 04:47 Labs: Abnormal lab results 03/13/19 Range/Units 08:01 POC Glucose 122 H (70-105)
[2019-03-13] MEDS: NACL 0.9% 1000 ML 1,000 ML IV SCH ×2 (10:16→17:59)
--- NOTE | 2019-03-13 11:36 | Operative Report ---
Operative Report Operative Report: DATE OF SERVICE: 03/13/19 SURGEON: Keshawn Sanchez MD COLONOSCOPY with snare polypectomy REPORT PREOPERATIVE AND POSTOPERATIVE DIAGNOSIS: Abnormal CT of the abdomen (Sigmoid mass) DESCRIPTION OF PROCEDURE: The colonoscope was passed to the cecum as identified by the ileocecal valve and appendiceal orifice.. Scope was carefully withdrawn. Retroflexion was performed in the rectum. At the end of procedure, the scope was cleaned using normal technique. Vital signs monitored continuously throughout. SEDATION: Provided by Anesthesiology Services. Quality of the prep was adequate. COMPLICATIONS: None. ESTIMATED BLOOD LOSS: minimal FINDINGS: * Scattered diverticulosis of the entire colon * 15mm semi-sessile polyp of the sigmoid colon. Ceompletely resected using saline injection-lift (2cc NS) and hot snare polypectomy. The post polypectomy site was closed using a single hemoclip to prevent bleeding * The opposite side of the colon at the level of the polyp (About 40cm from anus) was edematous. Biopsies taken * Small internal hemorrhoids * Remainder of the exam was normal RECOMMENDATIONS: * f/u path results, likely repeat colonoscopy 3 years * suspect the lucretia-polyp edema caused thickening of the appearance of the sigmoid colon on imaging which gave the appearance of a sigmoid mass. There is no endoscopic evidence for colon cancer * Oncology may consider CT-guided biopsy of the liver lesions if oncology feels there is still a chance for malignancy. * From GI perspective patient can be discharged with outpatient follow-up * We will sign off, please feel free to call back with any questions * I spoke with the patient and called his sister on the phone and informed them of these results
[2019-03-13] MEDS ORDERED: DIPRIVAN 10 MG/ML IV ONE ×2 (13:18)
[2019-03-13] MEDS: LOVENOX SUB-Q SCH (14:10)
[2019-03-13] MEDS: ECOTRIN PO SCH (14:11)
[2019-03-13] MEDS: ZESTRIL PO SCH (17:58)
--- NOTE | 2019-03-14 03:12 | Treadmill Report ---
IV LEXISCAN PHARMACOLOGICAL STRESS TESTING REPORT The patient underwent pharmacological stress testing with IV Lexiscan. The patient has myocardial perfusion imaging using technetium pyrophosphate tetrofosmin. Perfusion images were obtained during rest and also following post-dilation with IV Lexiscan. Also, gated study was performed post-stress. Following findings were noted. Perfusion images showed normal perfusion, post-vasodilation and at stress. Transient ischemic dilation ratio was found to be 0.97. Normal size left ventricle with normal contractility noted. Ejection fraction was calculated to be 58%. FINAL IMPRESSION: 1. Normal myocardial perfusion scan. 2. Normal left ventricular systolic function with normal sized left ventricle, ejection fraction 58%. 3. This is a low risk study for future cardiac events. JOB# [id number] MARTHA/MICHA ROGERS
[2019-03-14] MEDS: LOVENOX SUB-Q SCH (10:38)
[2019-03-14] MEDS: ZESTRIL PO SCH (10:38)
[2019-03-14] MEDS: ECOTRIN PO SCH (10:38)
[2019-03-14] MEDS: SODIUM CHLORIDE FLUSH SYRINGE 10 ML IV PRN (10:39)
--- NOTE | 2019-03-14 12:42 | Progress Note ---
Assessment and Plan 58-year-old male with a history of diabetes mellitus and acoustic neuroma right ear who was seen in urgent care center for palpitation and diaphoresis and occasional chest discomfort. Referred to emergency room [facility]. + EKG 03/08/19: Showed sinus tachycardia at 144/min + Lexiscan stress test 03/09/19: Showed no evidence of ischemia + Echocardiogram 03/09/19: Normal left ventricular function and ejection fraction of 55-60% with impaired relaxation + CT angio 03/09/19: Showed multiple nodularity and attenuation in the liver with enlarged head of pancreas. CT abdomen and pelvis adviced for rachelle eval + CT abdomen and pelvis showed sigmoid colon mass with possible mets to the liver + Colonoscopy 03/13/19 report: Scattered diverticulosis of the entire colon * 15mm semi-sessile polyp of the sigmoid colon. Ceompletely resected using saline injection-lift (2cc NS) and hot snare polypectomy. The post polypectomy site was closed using a single hemoclip to prevent bleeding * The opposite side of the colon at the level of the polyp (About 40cm from anus) was edematous. Biopsies taken - Multipled mixed nodularity and attenuation of the right lobe of the liver suggestive of mets For Liver biospy. Discussed with IR. Pt to be kept NPO and d/c anticoagulant - Chest discomfort - resolved Normal Lesxiscan test EKG shows sinus tachycardia Echocardiogram - showed LVEF of 55-60% with impaired relaxation. 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 Time spent 35 minutes Subjective Date of service: 03/14/19 Principal diagnosis: chest discomfort, palpitation and diaphoresis Interval history: No more chest pain all palpitation. No orthorpnea or PND. CT abdomen and pelvis showed sigmoid tumor with possible met tothe liver. Colonoscopy showed no tumor but an extrinsic mass Objective - Exam Narrative Exam: Constitutional: Well-nourished well-developed. In no distress Head: Normocephalic atraumatic Eyes: Pupils are equal round and reactive to light Nose: No enlarged turbinates, no septal deviation. Mouth: Moist mucous membranes. Neck: Supple no thyromegaly. No bruit. No JVD Heart: Regular rate and rhythm, S1-S2 normal. No rubs murmurs or gallop Lungs: Clear to auscultation bilaterally. no rales or rhonchi Abdomen: Soft, nontender. Bowel sound are present. Extremities: No edema, no cyanosis, no clubbing. Neuro: Alert oriented Oriented x3. No focal sensory or motor deficit. Skin: No rashes or hyperpigmented spots Musculoskeletal system: No joint pain or swelling Hematological: No petechia or subcutanous hemorrhages. Immunological: No multiple septic spots on the skin Lymphatic: No generalized lymphadenopathy Psychiatry: Euthymic. Calm. - Constitutional Vitals: Vital Signs - 12hr 03/14/19 03/14/19 03/14/19 04:05 08:52 10:00 Temperature 98.6 F 99.0 F Pulse Rate 84 94 H Respiratory 12 16 Rate Blood Pressure 136/83 158/96 O2 Sat by Pulse 99 96 98 Oximetry - Labs CBC & Chem 7: 03/11/19 04:47 03/11/19 04:47 Labs: Abnormal lab results 03/13/19 03/13/19 03/14/19 Range/Units 16:11 21:03 11:33 POC Glucose 182 H 143 H 234 H (70-105)
[2019-03-14 13:06] LABS: Basophils # (Auto) 0.1 K/mm3 (0.0-0.1); Basophils % (Auto) 2.4 % (0.0-1.8); Eosinophils # (Auto) 0.3 K/mm3 (0.0-0.4); Hematocrit 35.1 % (35.5-45.6); Hemoglobin 11.4 gm/dl (11.8-15.2); Lymphocytes % (Auto) 20.9 % (13.4-35.0); Mean Corpuscular HGB Conc 33 % (32-34); Mean Corpuscular Volume 92 fl (84-94); Monocytes # (Auto) 0.4 K/mm3 (0.0-0.8); Monocytes % (Auto) 7.6 % (0.0-7.3); Platelet Count 375 K/mm3 (140-440); Red Cell Distribution Width 14.6 % (13.2-15.2)
[2019-03-14 13:34] LABS: Alanine Aminotransferase 57 units/L (7-56); Albumin 3.6 g/dL (3.9-5); BUN/Creatinine Ratio 8; Blood Urea Nitrogen 9 mg/dL (9-20); Calcium 9.2 mg/dL (8.4-10.2); Hemolysis Index 12
[2019-03-15 07:13] LABS: Basophils % (Auto) 0.5 % (0.0-1.8); Eosinophils # (Auto) 0.5 K/mm3 (0.0-0.4); Eosinophils % (Auto) 8.8 % (0.0-4.3); Hematocrit 35.4 % (35.5-45.6); Hemoglobin 11.6 gm/dl (11.8-15.2); Lymphocytes # (Auto) 1.2 K/mm3 (1.2-5.4); Mean Corpuscular HGB Conc 33 % (32-34); Mean Corpuscular Volume 93 fl (84-94); Monocytes # (Auto) 0.4 K/mm3 (0.0-0.8); Monocytes % (Auto) 7.3 % (0.0-7.3); Platelet Count 385 K/mm3 (140-440); Red Cell Distribution Width 14.6 % (13.2-15.2)
[2019-03-15 07:38] LABS: Alanine Aminotransferase 52 units/L (7-56); Albumin 3.3 g/dL (3.9-5); BUN/Creatinine Ratio 9; Blood Urea Nitrogen 10 mg/dL (9-20); Calcium 9.1 mg/dL (8.4-10.2); Hemolysis Index 5
[2019-03-15 07:53] LABS: INR 0.95 (0.87-1.13)
[2019-03-15] MEDS: ZESTRIL PO SCH (13:21)
--- NOTE | 2019-03-15 13:37 | Progress Note ---
Assessment and Plan 58-year-old male with a history of diabetes mellitus and acoustic neuroma right ear who was seen in urgent care center for palpitation and diaphoresis and occasional chest discomfort. Referred to emergency room [facility]. + EKG 03/08/19: Showed sinus tachycardia at 144/min + Lexiscan stress test 03/09/19: Showed no evidence of ischemia + Echocardiogram 03/09/19: Normal left ventricular function and ejection fraction of 55-60% with impaired relaxation + CT angio 03/09/19: Showed multiple nodularity and attenuation in the liver with enlarged head of pancreas. CT abdomen and pelvis adviced for rachelle eval + CT abdomen and pelvis showed sigmoid colon mass with possible mets to the liver + Colonoscopy 03/13/19 report: Scattered diverticulosis of the entire colon * 15mm semi-sessile polyp of the sigmoid colon. Ceompletely resected using saline injection-lift (2cc NS) and hot snare polypectomy. The post polypectomy site was closed using a single hemoclip to prevent bleeding * The opposite side of the colon at the level of the polyp (About 40cm from anus) was edematous. Biopsies taken - Multipled mixed nodularity and attenuation of the right lobe of the liver suggestive of mets For Liver biospy. Discussed with IR. Pt to be kept NPO and d/c anticoagulant for CT guided biopsy on 03/16/19 - Chest discomfort - resolved Normal Lesxiscan test EKG shows sinus tachycardia Echocardiogram - showed LVEF of 55-60% with impaired relaxation. 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 Time spent 35 minutes Subjective Date of service: 03/15/19 Principal diagnosis: chest discomfort, palpitation and diaphoresis Interval history: No more chest pain all palpitation. No orthorpnea or PND. CT abdomen and pelvis showed sigmoid tumor with possible met to the liver. Colonoscopy showed no tumor but an extrinsic mass and possible liver mets Objective - Exam Narrative Exam: Constitutional: Well-nourished well-developed. In no distress Head: Normocephalic atraumatic Eyes: Pupils are equal round and reactive to light Nose: No enlarged turbinates, no septal deviation. Mouth: Moist mucous membranes. Neck: Supple no thyromegaly. No bruit. No JVD Heart: Regular rate and rhythm, S1-S2 normal. No rubs murmurs or gallop Lungs: Clear to auscultation bilaterally. no rales or rhonchi Abdomen: Soft, nontender. Bowel sound are present. Extremities: No edema, no cyanosis, no clubbing. Neuro: Alert oriented Oriented x3. No focal sensory or motor deficit. Skin: No rashes or hyperpigmented spots Musculoskeletal system: No joint pain or swelling Hematological: No petechia or subcutanous hemorrhages. Immunological: No multiple septic spots on the skin Lymphatic: No generalized lymphadenopathy Psychiatry: Euthymic. Calm. - Constitutional Vitals: Vital Signs - 12hr 03/15/19 03/15/19 03:47 09:36 Temperature 98.2 F 98.3 F Pulse Rate 85 88 Respiratory 16 18 Rate Blood Pressure 147/88 150/93 O2 Sat by Pulse 99 99 Oximetry - Labs CBC & Chem 7: 03/15/19 06:44 03/15/19 06:44 Labs: Abnormal lab results 03/14/19 03/14/19 03/15/19 Range/Units 16:10 20:53 06:44 Hgb 11.6 L (11.8-15.2) gm/dl Hct 35.4 L (35.5-45.6) % Eos % (Auto) 8.8 H (0.0-4.3) % Eos # 0.5 H (0.0-0.4) K/mm3 Glucose (75-100) mg/dL POC Glucose 149 H 157 H (70-105) Alkaline Phosphatase (35-129) units/L Albumin (3.9-5) g/dL 04/14/19 04/14/19 04/14/19 Range/Units 06:44 07:46 11:37 Hgb (11.8-15.2) gm/dl Hct (35.5-45.6) % Eos % (Auto) (0.0-4.3) % Eos # (0.0-0.4) K/mm3 Glucose 140 H (75-100) mg/dL POC Glucose 132 H 216 H (70-105) Alkaline Phosphatase 248 H (35-129) units/L Albumin 3.3 L (3.9-5) g/dL
[2019-03-16 05:41] LABS: Basophils # (Auto) 0.1 K/mm3 (0.0-0.1); Basophils % (Auto) 1.8 % (0.0-1.8); Eosinophils # (Auto) 0.5 K/mm3 (0.0-0.4); Eosinophils % (Auto) 9.2 % (0.0-4.3); Hematocrit 31.2 % (35.5-45.6); Hemoglobin 10.2 gm/dl (11.8-15.2); Lymphocytes # (Auto) 1.3 K/mm3 (1.2-5.4); Lymphocytes % (Auto) 24.6 % (13.4-35.0); Mean Corpuscular HGB Conc 33 % (32-34); Mean Corpuscular Volume 91 fl (84-94); Monocytes # (Auto) 0.4 K/mm3 (0.0-0.8); Monocytes % (Auto) 6.6 % (0.0-7.3); Platelet Count 383 K/mm3 (140-440); Red Blood Count 3.43 M/mm3 (3.65-5.03); Red Cell Distribution Width 14.6 % (13.2-15.2)
[2019-03-16 05:44] LABS: INR 0.98 (0.87-1.13)
[2019-03-16 05:59] LABS: Alanine Aminotransferase 43 units/L (7-56); Albumin 3.1 g/dL (3.9-5); BUN/Creatinine Ratio 11; Blood Urea Nitrogen 11 mg/dL (9-20); Calcium 8.7 mg/dL (8.4-10.2); Hemolysis Index 2
--- NOTE | 2019-03-16 09:23 | Progress Note ---
Assessment and Plan 58-year-old male with a history of diabetes mellitus and acoustic neuroma right ear who was seen in urgent care center for palpitation and diaphoresis and occasional chest discomfort. Referred to emergency room [facility]. + EKG 03/08/19: Showed sinus tachycardia at 144/min + Lexiscan stress test 03/09/19: Showed no evidence of ischemia + Echocardiogram 03/09/19: Normal left ventricular function and ejection fraction of 55-60% with impaired relaxation + CT angio 03/09/19: Showed multiple nodularity and attenuation in the liver with enlarged head of pancreas. CT abdomen and pelvis adviced for rachelle eval + CT abdomen and pelvis showed sigmoid colon mass with possible mets to the liver + Colonoscopy 03/13/19 report: Scattered diverticulosis of the entire colon * 15mm semi-sessile polyp of the sigmoid colon. Ceompletely resected using saline injection-lift (2cc NS) and hot snare polypectomy. The post polypectomy site was closed using a single hemoclip to prevent bleeding * The opposite side of the colon at the level of the polyp (About 40cm from anus) was edematous. Biopsies taken - Multipled mixed nodularity and attenuation of the right lobe of the liver suggestive of mets For Liver biospy. Discussed with IR. Pt is for CT guided liver biopsy today, 03/16/19 - Chest discomfort - resolved Normal Lesxiscan test EKG shows sinus tachycardia Echocardiogram - showed LVEF of 55-60% with impaired relaxation. 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 Time spent 35 minutes Subjective Date of service: 03/16/19 Principal diagnosis: chest discomfort, palpitation and diaphoresis Interval history: No more chest pain all palpitation. no overnight event. No orthorpnea or PND. CT abdomen and pelvis showed sigmoid tumor with possible met to the liver. Colonoscopy showed no tumor but an extrinsic mass and possible liver mets. Objective - Exam Narrative Exam: Constitutional: Well-nourished well-developed. In no distress Head: Normocephalic atraumatic Eyes: Pupils are equal round and reactive to light Nose: No enlarged turbinates, no septal deviation. Mouth: Moist mucous membranes. Neck: Supple no thyromegaly. No bruit. No JVD Heart: Regular rate and rhythm, S1-S2 normal. No rubs murmurs or gallop Lungs: Clear to auscultation bilaterally. no rales or rhonchi Abdomen: Soft, nontender. Bowel sound are present. Extremities: No edema, no cyanosis, no clubbing. Neuro: Alert oriented Oriented x3. No focal sensory or motor deficit. Skin: No rashes or hyperpigmented spots Musculoskeletal system: No joint pain or swelling Hematological: No petechia or subcutanous hemorrhages. Immunological: No multiple septic spots on the skin Lymphatic: No generalized lymphadenopathy Psychiatry: Euthymic. Calm. - Constitutional Vitals: Vital Signs - 12hr 03/15/19 03/16/19 03/16/19 22:00 00:06 04:12 Temperature 98.3 F 98.0 F Pulse Rate 89 87 80 Respiratory 16 16 Rate Blood Pressure 148/89 151/77 O2 Sat by Pulse 99 97 Oximetry - Labs CBC & Chem 7: 03/16/19 04:25 03/16/19 04:25 Labs: Abnormal lab results 03/15/19 03/15/19 03/15/19 Range/Units 11:37 16:34 21:09 RBC (3.65-5.03) M/mm3 Hgb (11.8-15.2) gm/dl Hct (35.5-45.6) % Eos % (Auto) (0.0-4.3) % Eos # (0.0-0.4) K/mm3 Glucose (75-100) mg/dL POC Glucose 216 H 138 H 168 H (70-105) Alkaline Phosphatase (35-129) units/L Albumin (3.9-5) g/dL 04/03/16/19 03/16/19 Range/Units 04:25 04:25 08:14 RBC 3.43 L (3.65-5.03) M/mm3 Hgb 10.2 L (11.8-15.2) gm/dl Hct 31.2 L (35.5-45.6) % Eos % (Auto) 9.2 H (0.0-4.3) % Eos # 0.5 H (0.0-0.4) K/mm3 Glucose 199 H (75-100) mg/dL POC Glucose 140 H (70-105) Alkaline Phosphatase 215 H (35-129) units/L Albumin 3.1 L (3.9-5) g/dL
[2019-03-16] MEDS ORDERED: NACL 0.9% 500 ML 500 ML ONE (09:35)
--- NOTE | 2019-03-16 09:50 | Event Note ---
Date: 03/16/19 Pathologist just called me today 03/16/19 to say that the excised polyp in the sigmoid colon was invasive adenocarcinoma with positive margins. Will obtain oncology and surgical consult
[2019-03-16] MEDS ORDERED: SUBLIMAZE IV ONE (10:00)
[2019-03-16] MEDS ORDERED: VERSED IV ONE ×2 (10:00→10:29)
[2019-03-16] MEDS ORDERED: SUBLIMAZE ONE (10:29)
--- NOTE | 2019-03-16 11:16 | Event Note ---
Date: 03/16/19 Patient s/p colonoscopy that showed scattered diverticulosis, small internal hemorrhoids and 15mm semi-sessile polyp (removed with hot snare with hemoclip placed). Path results positive for invasive adenocarcinoma with positive margins. Further management per oncology and surgery. GI will sign off. Please call if needed.
[2019-03-16] MEDS: ZESTRIL PO SCH (13:06)
--- NOTE | 2019-03-16 22:25 | Event Note ---
Date: 03/16/19 [id number]
--- NOTE | 2019-03-17 05:17 | Consultation ---
REFERRED BY: Rosie Mishra MD REASON FOR CONSULTATION: Invasive colon cancer with liver lesions. HISTORY OF PRESENT ILLNESS: I saw the patient, a 58-year-old male in the medical floor. He has past history of diabetes, acoustic neuroma with loss of hearing in the right ear, hypertension. He has been having occasional palpitations, as this worsened along with shortness of breath, he was seen at urgent care center and then was asked to go to the Emergency Department. He was found to have tachycardia. During this admission, the patient underwent radiology testing CT chest, which showed nodularity in the liver, lungs clear, no PE. The patient was seen by Cardiology team. He underwent later CT abdomen, which showed hepatomegaly with 1 lesion measuring 9.2 cm. There is an irregular mass lesion in the sigmoid colon measuring 3.7 cm. The patient was seen by GI team, history of loss of weight was present, history of rectal bleed was also present. The patient underwent colonoscopy, which showed a 15 mm semi-sessile polyp in the sigmoid colon, opposite side of the colon at the level of polyp about 40 cm from anal canal was edematous. Biopsies were taken. Pathology report showed invasive moderately differentiated adenocarcinoma extends to the resection margin. PAST MEDICAL HISTORY: As above. SURGICAL HISTORY: Nil significant. SOCIAL HISTORY: No history of tobacco or alcohol usage. Worked as a business executive, now retired. FAMILY HISTORY: Noncontributory. ALLERGIES: None. PHYSICAL EXAMINATION: VITAL SIGNS: Temperature 98, pulse 87, respirations 12, BP 149/86. HEENT: Mild pallor, no icterus. NECK: No neck lymph nodes. HEART: S1, S2. LUNGS: Clear to auscultation. ABDOMEN: Soft, no guarding. EXTREMITIES: No calf tenderness. NEUROLOGIC: Alert, awake. LABORATORY DATA: White cell 5.5, hemoglobin 10.2, MCV 91, platelet 383, potassium 3.9, creatinine 1, calcium 8.7, bilirubin 0.3. ASSESSMENT: 1. Invasive colon cancer, margins positive. 2. Liver lesions as per Radiology, metastatic. 3. History of rectal bleed. 4. History of loss of weight. 5. History of palpitations and shortness of breath. 6. I discussed with the patient regarding the stage of the disease. There is no mention of obstruction in the colon. I discussed with the patient regarding chemotherapy as an outpatient. I discussed about port placement. We will do CEA. 7. History of acoustic neuroma with hearing loss on the right side. 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 8. Diabetes. 9. History of hypertension. 10. History of hyperbilirubinemia. I will follow the patient during inpatient stay and then in the clinical setting. JOB# [id number] RICKY/MICHA
[2019-03-17 06:26] LABS: Basophils # (Auto) 0.1 K/mm3 (0.0-0.1); Basophils % (Auto) 2.2 % (0.0-1.8); Eosinophils # (Auto) 0.4 K/mm3 (0.0-0.4); Hematocrit 31.4 % (35.5-45.6); Hemoglobin 10.4 gm/dl (11.8-15.2); INR 0.95 (0.87-1.13); Lymphocytes # (Auto) 1.2 K/mm3 (1.2-5.4); Lymphocytes % (Auto) 24.5 % (13.4-35.0); Mean Corpuscular HGB Conc 33 % (32-34); Mean Corpuscular Volume 92 fl (84-94); Monocytes # (Auto) 0.4 K/mm3 (0.0-0.8); Monocytes % (Auto) 8.1 % (0.0-7.3); Platelet Count 390 K/mm3 (140-440); Red Cell Distribution Width 14.4 % (13.2-15.2)
[2019-03-17 06:38] LABS: Alanine Aminotransferase 42 units/L (7-56); Albumin 3.3 g/dL (3.9-5); BUN/Creatinine Ratio 11; Blood Urea Nitrogen 11 mg/dL (9-20); Calcium 8.8 mg/dL (8.4-10.2); Hemolysis Index 4
--- NOTE | 2019-03-17 07:50 | Hem/Onc Progress Note ---
Assessment and Plan 1. Invasive colon cancer, margins positive. 2. Liver lesions as per Radiology, metastatic. 3. History of rectal bleed. 4. History of loss of weight. 5. History of palpitations and shortness of breath. 6. I discussed with the patient regarding the stage of the disease. There is no mention of obstruction in the colon. I discussed with the patient regarding chemotherapy as an outpatient. I discussed about port placement. CEA. 7. History of acoustic neuroma with hearing loss on the right side. 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 8. Diabetes. 9. History of hypertension. 10. History of hyperbilirubinemia. 03/17 d/w dr santo turk sx d/w dr locke - PCP the sigmoid area abn is in ? the wall of colon the liver lesion is likely mets CEA pending clinically stage IV colon ca - Patient Problems (1) Colon cancer metastasized to liver Current Visit: Yes Status: Acute Subjective Date of service: 03/17/19 Objective - Constitutional Vitals: Last Vital Signs Temp 98.5 F 03/17/19 04:16 Pulse 80 03/17/19 04:16 Resp 12 03/17/19 04:16 BP 149/84 03/17/19 04:16 Pulse Ox 98 03/17/19 04:16 Pain Intensity (0-10): denies any pain General appearance: no acute distress Performance status: 3-limited selfcare - EENT Eyes: EOM intact ENT: other (rt facial palsy) - Neck Neck: normal ROM - Respiratory Respiratory effort: Positive: normal Respiratory: bilateral: CTA - Cardiovascular Heart Sounds: Present: S1 & S2 Extremities: No edema - Gastrointestinal General gastrointestinal: Present: soft, non-tender Rectal Exam: deferred - Genitourinary Male genitourinary: Present: deferred - Integumentary Integumentary: warm - Musculoskeletal Musculoskeletal: strength equal bilaterally, generalized weakness - Neurologic Neurologic: moves all extremities - Labs Lab Results: Laboratory Results - last 24 hr 03/16/19 03/16/19 03/16/19 08:14 11:39 15:55 WBC RBC Hgb Hct MCV MCH MCHC RDW Plt Count Lymph % (Auto) Rooks % (Auto) Eos % (Auto) Baso % (Auto) Lymph # Rooks # Eos # Baso # Seg Neutrophils % Seg Neutrophils # PT INR Sodium Potassium Chloride Carbon Dioxide Anion Gap BUN Creatinine Estimated GFR BUN/Creatinine Ratio Glucose POC Glucose 140 H 138 H 193 H Calcium Total Bilirubin AST ALT Alkaline Phosphatase Total Protein Albumin Albumin/Globulin Ratio 03/16/19 03/17/19 03/17/19 21:30 04:53 04:53 WBC 5.0 RBC 3.40 L Hgb 10.4 L Hct 31.4 L MCV 92 MCH 31 MCHC 33 RDW 14.4 Plt Count 390 Lymph % (Auto) 24.5 Rooks % (Auto) 8.1 H Eos % (Auto) 8.0 H Baso % (Auto) 2.2 H Lymph # 1.2 Rooks # 0.4 Eos # 0.4 Baso # 0.1 Seg Neutrophils % 57.2 Seg Neutrophils # 2.9 PT 13.3 INR 0.95 Sodium Potassium Chloride Carbon Dioxide Anion Gap BUN Creatinine Estimated GFR BUN/Creatinine Ratio Glucose POC Glucose 165 H Calcium Total Bilirubin AST ALT Alkaline Phosphatase Total Protein Albumin Albumin/Globulin Ratio 03/17/19 03/17/19 04:53 07:39 WBC RBC Hgb Hct MCV MCH MCHC RDW Plt Count Lymph % (Auto) Rooks % (Auto) Eos % (Auto) Baso % (Auto) Lymph # Rooks # Eos # Baso # Seg Neutrophils % Seg Neutrophils # PT INR Sodium 139 Potassium 4.1 Chloride 103.9 Carbon Dioxide 23 Anion Gap 16 BUN 11 Creatinine 1.0 Estimated GFR > 60 BUN/Creatinine Ratio 11 Glucose 133 H POC Glucose 143 H Calcium 8.8 Total Bilirubin 0.40 AST 25 ALT 42 Alkaline Phosphatase 209 H Total Protein 6.5 Albumin 3.3 L Albumin/Globulin Ratio 1.0 Medications & Allergies - Medications Allergies/Adverse Reactions: Allergies No Known Allergies Allergy (Unverified 03/08/19 18:13) Home Medications: Home Medications Medication Instructions Recorded Confirmed Last Taken Type Amlodipine-Valsartan 10-160 mg 10 - 160 mg PO Q24HR 03/09/19 03/11/19 03/07/19 09:00 History Atorvastatin 20 mg PO HS MDD 20 03/09/19 03/11/19 03/11/19 History Xigduo Xr 5 mg-1,000 mg Tablet 5 - 1,000 mg PO Q24HR 03/09/19 03/11/19 03/07/19 09:00 History Active Medications: Generic Name Dose Route Start Last Admin Trade Name Freq PRN Reason Stop Dose Admin Sodium Chloride 1,000 mls @ 50 mls/hr 03/13/19 11:00 03/13/19 17:59 Nacl 0.9% 1000 Ml IV 50 mls/hr DIRECT BLANCA Administration Lisinopril 5 mg 03/09/19 10:00 03/16/19 13:06 Zestril PO Not Given QDAY BLANCA Sodium Chloride 10 ml 03/09/19 07:25 03/14/19 10:39 Sodium Chloride Flush Syringe 10 Ml IV 10 ml PRN PRN Administration LINE FLUSH
--- NOTE | 2019-03-17 09:21 | Progress Note ---
Assessment and Plan 58-year-old male with a history of diabetes mellitus and acoustic neuroma right ear who was seen in urgent care center for palpitation and diaphoresis and occasional chest discomfort. Referred to emergency room [facility]. + EKG 03/08/19: Showed sinus tachycardia at 144/min + Lexiscan stress test 03/09/19: Showed no evidence of ischemia + Echocardiogram 03/09/19: Normal left ventricular function and ejection fraction of 55-60% with impaired relaxation + CT angio 03/09/19: Showed multiple nodularity and attenuation in the liver with enlarged head of pancreas. CT abdomen and pelvis adviced for rachelle eval + CT abdomen and pelvis showed sigmoid colon mass with possible mets to the liver + Colonoscopy 03/13/19 report: Scattered diverticulosis of the entire colon * 15mm semi-sessile polyp of the sigmoid colon. Completely resected using saline injection-lift (2cc NS) and hot snare polypectomy. The post p olypectomy site was closed using a single hemoclip to prevent bleeding * The opposite side of the colon at the level of the polyp (About 40cm from anus) was edematous. Biopsies taken + Biospy report came back 03/16/19 as invasive adenocarcinoma of the colon. Still has an extrinsic portion. Invasive Adenocarcinoma of the colon with - Multipled mixed nodularity and attenuation of the right lobe of the liver suggestive of mets Discussed with IR. Agreed to hold biospy of the liver as the invasive carcinoma of the colon was the likely primary source of the live mets. Discussed with and consulted Oncologist. he plan to commence chemotheropy. Consulted the surgeon for port placement for chemotherapy Consulted Surgeon to consider excision of the extrinsic portion of the mass which may has cause the early mets to the liver considering the size of the sessile polyp the was excised at colonoscopy - Chest discomfort - resolved Normal Lesxiscan test EKG shows sinus tachycardia Echocardiogram - showed LVEF of 55-60% with impaired relaxation. 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 Time spent 40 minutes Subjective Date of service: 03/17/19 Principal diagnosis: chest discomfort, palpitation and diaphoresis Interval history: No more chest pain all palpitation. no overnight event. No orthorpnea or PND. CT abdomen and pelvis showed sigmoid tumor with possible met to the liver. Colonoscopy showed polyp with an extrinsic mass and possible liver mets. Objective - Exam Narrative Exam: Constitutional: Well-nourished well-developed. In no distress Head: Normocephalic atraumatic Eyes: Pupils are equal round and reactive to lightright facial palsy. Nose: No enlarged turbinates, no septal deviation. Mouth: Moist mucous membranes. Neck: Supple no thyromegaly. No bruit. No JVD Heart: Regular rate and rhythm, S1-S2 normal. No rubs murmurs or gallop Lungs: Clear to auscultation bilaterally. no rales or rhonchi Abdomen: Soft, nontender. Bowel sound are present. Extremities: No edema, no cyanosis, no clubbing. Neuro: Alert oriented Oriented x3. No focal sensory or motor deficit. Skin: No rashes or hyperpigmented spots Musculoskeletal system: No joint pain or swelling Hematological: No petechia or subcutanous hemorrhages. Immunological: No multiple septic spots on the skin Lymphatic: No generalized lymphadenopathy Psychiatry: Euthymic. Calm. - Constitutional Vitals: Vital Signs - 12hr 03/16/19 03/16/19 03/17/19 22:00 23:15 04:16 Temperature 97.9 F 98.5 F Pulse Rate 89 88 80 Respiratory 14 12 Rate Blood Pressure 144/86 149/84 O2 Sat by Pulse 97 98 Oximetry - Labs CBC & Chem 7: 03/17/19 04:53 03/17/19 04:53 Labs: Abnormal lab results 03/16/19 03/16/19 03/16/19 Range/Units 11:39 15:55 21:30 RBC (3.65-5.03) M/mm3 Hgb (11.8-15.2) gm/dl Hct (35.5-45.6) % Carroll % (Auto) (0.0-7.3) % Eos % (Auto) (0.0-4.3) % Baso % (Auto) (0.0-1.8) % Glucose (75-100) mg/dL POC Glucose 138 H 193 H 165 H (70-105) Alkaline Phosphatase (35-129) units/L Albumin (3.9-5) g/dL 03/17/19 03/17/19 03/17/19 Range/Units 04:53 04:53 07:39 RBC 3.40 L (3.65-5.03) M/mm3 Hgb 10.4 L (11.8-15.2) gm/dl Hct 31.4 L (35.5-45.6) % Carroll % (Auto) 8.1 H (0.0-7.3) % Eos % (Auto) 8.0 H (0.0-4.3) % Baso % (Auto) 2.2 H (0.0-1.8) % Glucose 133 H (75-100) mg/dL POC Glucose 143 H (70-105) Alkaline Phosphatase 209 H (35-129) units/L Albumin 3.3 L (3.9-5) g/dL
[2019-03-17] MEDS: ZESTRIL PO SCH (10:36)
--- NOTE | 2019-03-17 10:59 | Consultation ---
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 He was worked up accordingly with stress test, CTA chest. Stress test was negative. CTA chest was negative for PE but showed metastatic lesions in the liver. Ct scan A/P showed a sigmoid mass. He underwent colonscopy and a polyp was removed from the sigmoid colon. Pathology is invasive carcinoma with positive margins. The patient states he has been eating well without weight loss. His BMs have been normal. No change in BMs. No melena or hematochezia. Had cologuard 2 years ago which was low risk. Never had a colonoscopy before this admission. No f/c. SOB and palpitations have resolved. Past History Past Medical History: diabetes, hypertension, other (palpitation ) Past Surgical History: Other (right acoustic neuroma) Social history: denies: smoking, alcohol abuse (however drinks occasionally), prescription drug abuse Family history: no significant family history Medications and Allergies Allergies Allergy/AdvReac Type Severity Reaction Status Date / Time No Known Allergies Allergy Unverified 03/08/19 18:13 Home Medications Medication Instructions Recorded Confirmed Last Taken Type Amlodipine-Valsartan 10-160 mg 10 - 160 mg PO Q24HR 03/09/19 03/11/19 03/07/19 09:00 History Atorvastatin 20 mg PO HS MDD 20 03/09/19 03/11/19 03/11/19 History Xigduo Xr 5 mg-1,000 mg Tablet 5 - 1,000 mg PO Q24HR 03/09/19 03/11/19 03/07/19 09:00 History Active Meds: Active Medications Enoxaparin Sodium (Lovenox) 40 mg SUB-Q QDAY@2200 [facility] Sodium Chloride (Nacl 0.9% 1000 Ml) 1,000 mls @ 50 mls/hr IV DIRECT [facility]AN[facility] Last Admin: 03/13/19 17:59 Dose: 50 mls/hr Documented by: Lisinopril (Zestril) 5 mg PO QDAY [facility] Last Admin: 03/17/19 10:36 Dose: 5 mg Documented by: Sodium Chloride (Sodium Chloride Flush Syringe 10 Ml) 10 ml IV PRN PRN PRN Reason: LINE FLUSH Last Admin: 03/14/19 10:39 Dose: 10 ml Documented by: Review of Systems All systems: negative (10 pt ROS performed and negative except for that listed in HPI) Exam Vital Signs Temp Pulse Resp BP Pulse Ox 97.7 F 128 H 18 141/97 98 03/08/19 18:09 03/08/19 18:09 03/08/19 18:09 03/08/19 18:09 03/08/19 18:09 Narrative exam: Gen: AAOx3. NAD ENT: no scleral icterus or conjunctival pallor. Trachea midline. No LAD CV: s1, S2+ Resp; even and unlabored Abd: soft Ext: no c/c/e Results - Labs 03/17/19 04:53 03/17/19 04:53 Abnormal lab results 03/16/19 03/16/19 03/16/19 Range/Units 11:39 15:55 21:30 RBC (3.65-5.03) M/mm3 Hgb (11.8-15.2) gm/dl Hct (35.5-45.6) % White % (Auto) (0.0-7.3) % Eos % (Auto) (0.0-4.3) % Baso % (Auto) (0.0-1.8) % Glucose (75-100) mg/dL POC Glucose 138 H 193 H 165 H (70-105) Alkaline Phosphatase (35-129) units/L Albumin (3.9-5) g/dL 03/17/19 03/17/19 03/17/19 Range/Units 04:53 04:53 07:39 RBC 3.40 L (3.65-5.03) M/mm3 Hgb 10.4 L (11.8-15.2) gm/dl Hct 31.4 L (35.5-45.6) % White % (Auto) 8.1 H (0.0-7.3) % Eos % (Auto) 8.0 H (0.0-4.3) % Baso % (Auto) 2.2 H (0.0-1.8) % Glucose 133 H (75-100) mg/dL POC Glucose 143 H (70-105) Alkaline Phosphatase 209 H (35-129) units/L Albumin 3.3 L (3.9-5) g/dL Diabetes panel 03/17/19 Range/Units 04:53 Sodium 139 (137-145) mmol/L Potassium 4.1 (3.6-5.0) mmol/L Chloride 103.9 (98-107) mmol/L Carbon Dioxide 23 (22-30) mmol/L BUN 11 (9-20) mg/dL Creatinine 1.0 (0.8-1.5) mg/dL Glucose 133 H (75-100) mg/dL Calcium 8.8 (8.4-10.2) mg/dL AST 25 (5-40) units/L ALT 42 (7-56) units/L Alkaline Phosphatase 209 H (35-129) units/L Total Protein 6.5 (6.3-8.2) g/dL Albumin 3.3 L (3.9-5) g/dL Calcium panel 03/17/19 Range/Units 04:53 Calcium 8.8 (8.4-10.2) mg/dL Albumin 3.3 L (3.9-5) g/dL Pituitary panel 03/17/19 Range/Units 04:53 Sodium 139 (137-145) mmol/L Potassium 4.1 (3.6-5.0) mmol/L Chloride 103.9 (98-107) mmol/L Carbon Dioxide 23 (22-30) mmol/L BUN 11 (9-20) mg/dL Creatinine 1.0 (0.8-1.5) mg/dL Glucose 133 H (75-100) mg/dL Calcium 8.8 (8.4-10.2) mg/dL Adrenal panel 03/17/19 Range/Units 04:53 Sodium 139 (137-145) mmol/L Potassium 4.1 (3.6-5.0) mmol/L Chloride 103.9 (98-107) mmol/L Carbon Dioxide 23 (22-30) mmol/L BUN 11 (9-20) mg/dL Creatinine 1.0 (0.8-1.5) mg/dL Glucose 133 H (75-100) mg/dL Calcium 8.8 (8.4-10.2) mg/dL Total Bilirubin 0.40 (0.1-1.2) mg/dL AST 25 (5-40) units/L ALT 42 (7-56) units/L Alkaline Phosphatase 209 H (35-129) units/L Total Protein 6.5 (6.3-8.2) g/dL Albumin 3.3 L (3.9-5) g/dL - Imaging CT scan - abdomen: report reviewed, image reviewed CT scan - chest: report reviewed, image reviewed CT scan - pelvis: report reviewed, image reviewed Assessment and Plan 58 yo M with 1. invasive adnocarcinoma of the sigmoid colon 2. extraluminal sigmoid colon mass 3. liver metastasis Colonoscopy results - Scattered diverticulosis of the entire colon, 15mm semi- sessile polyp of the sigmoid colon. Completely resected using saline injection- lift (2cc NS) and hot snare polypectomy. The post polypectomy site was closed using a single hemoclip to prevent bleeding * The opposite side of the colon at the level of the polyp (About 40cm from anus) was edematous. Biopsies taken * Small internal hemorrhoids * Remainder of the exam was normal Ct scan A/P images reviewed with radiologist - subserosal, extraluminal sigmoid mass adjacent to sigmoid polyp. Extensive liver metastasis Plan; Ct scan findings suggestive of extraluminal colon mass with metastasis to the liver. This is likely why mass was not seen on colonoscopy and was appreciated as edematous. No evidence of obstruction or bleeding. 1. Discussed with Dr. Lerma - agree with proceeding with chemotherapy and patient is not a surgical candidate with advanced disease, without signs of obstruction or bleeding. Dr. Lerma would like port to be placed prior to dc. 2. CEA pending 3. continue current diet 4. Patient was planned for liver biopsy but this was cancelled by 1' service once pathology from colonoscopy was found to be invasive cancer. Radiology is confident the source is likely from colon mass. 5. Patient scheduled for port placement tomorrow 03/18/19. NPO p MN. Consent obtained - all risks, benefits, and alternatives discussed. Questions answered. D/W Dr. Mishra. Patient may be discharged following port placement from the surgical standpoint. Thank you, please call with questions.
[2019-03-17] MEDS: LOVENOX SUB-Q SCH ×2 (21:57→22:02)
[2019-03-18] MEDS ORDERED: VERSED IV NR (06:00)
[2019-03-18] MEDS: NACL 0.9% 1000 ML 1,000 ML IV SCH (07:00)
[2019-03-18] MEDS ORDERED: HEPARIN 10,000 UNITS/10 ML ONE (07:14)
[2019-03-18] MEDS ORDERED: ceFAZolin 2 GM in NACL 0.9% 100 ML IV ONE (07:15)
[2019-03-18] MEDS ORDERED: MARCAINE 0.25% INFILTRATI ONE ×3 (07:15→08:00)
[2019-03-18] MEDS ORDERED: XYLOCAINE 1% 20 mL ONE (07:15)
[2019-03-18] MEDS ORDERED: NACL 0.9% 100 ML ONE (07:16)
[2019-03-18] MEDS ORDERED: XYLOCAINE MPF 2% ONE (07:18)
[2019-03-18] MEDS ORDERED: SUBLIMAZE ONE ×2 (07:18→07:52)
[2019-03-18] MEDS ORDERED: DIPRIVAN 10 MG/ML IV ONE (07:19)
--- NOTE | 2019-03-18 07:42 | Hem/Onc Progress Note ---
Assessment and Plan - Patient Problems (1) Colon cancer metastasized to liver Current Visit: Yes Status: Acute Subjective Date of service: 03/18/19 Objective - Constitutional Vitals: Last Vital Signs Temp 98.5 F 03/18/19 03:56 Pulse 85 03/18/19 03:56 Resp 16 03/18/19 03:56 BP 160/91 03/18/19 03:56 Pulse Ox 100 03/18/19 03:56 - Labs Lab Results: Laboratory Results - last 24 hr 03/17/19 03/17/19 03/17/19 07:39 12:06 16:29 POC Glucose 143 H 200 H 126 H 03/17/19 03/18/19 21:03 07:29 POC Glucose 166 H 146 H Medications & Allergies - Medications Allergies/Adverse Reactions: Allergies No Known Allergies Allergy (Unverified 03/08/19 18:13) Home Medications: Home Medications Medication Instructions Recorded Confirmed Last Taken Type Amlodipine-Valsartan 10-160 mg 10 - 160 mg PO Q24HR 03/09/19 03/11/19 03/07/19 09:00 History Atorvastatin 20 mg PO HS MDD 20 03/09/19 03/11/19 03/11/19 History Xigduo Xr 5 mg-1,000 mg Tablet 5 - 1,000 mg PO Q24HR 03/09/19 03/11/19 03/07/19 09:00 History Active Medications: Generic Name Dose Route Start Last Admin Trade Name Freq PRN Reason Stop Dose Admin Cefazolin Sodium 2 gm 03/18/19 08:00 Ancef/Sterile Water 2 Gm/20 Ml IV PREOP NR Enoxaparin Sodium 40 mg 03/17/19 22:00 03/17/19 22:02 Lovenox SUB-Q Not Given QDAY@2200 [facility] Sodium Chloride 1,000 mls @ 50 mls/hr 03/13/19 11:00 03/13/19 17:59 Nacl 0.9% 1000 Ml IV 50 mls/hr DIRECT BLAN[facility] Administration Cefazolin Sodium 2 gm/ Sodium 100 mls @ 200 mls/hr 03/18/19 07:15 Chloride IV 03/18/19 07:44 ONCE ONE Protocol Cefazolin Sodium 2 gm in 20 mls @ 80 mls/hr 03/18/19 08:00 Ancef/Sterile Water 2 Gm/20 Ml IV 03/18/19 14:00 PREOP NR Lisinopril 5 mg 03/09/19 10:00 03/17/19 10:36 Zestril PO 5 mg QDAY [facility] Administration Midazolam HCl 2 mg 03/18/19 06:00 Versed IV 03/18/19 23:59 PREOP NR Sodium Chloride 10 ml 03/09/19 07:25 03/14/19 10:39 Sodium Chloride Flush Syringe 10 Ml IV 10 ml PRN PRN Administration LINE FLUSH
[2019-03-18] MEDS ORDERED: ANCEF/STERILE WATER 2 GM/20 ML IV NR (08:00)
[2019-03-18] MEDS ORDERED: ANCEF/STERILE WATER 2 GM/20 ML 2 GM/20 ML SYRINGE IV NR (08:00)
[2019-03-18] MEDS ORDERED: NACL 0.9% IR ONE (08:00)
[2019-03-18] MEDS ORDERED: HEPARIN 10,000 UNITS/10 ML IV ONE (08:00)
[2019-03-18] MEDS ORDERED: XYLOCAINE 1% 20 mL INFILTRATI ONE ×2 (08:00)
[2019-03-18] MEDS ORDERED: ZOFRAN ONE (08:28)
[2019-03-18] MEDS ORDERED: SUBLIMAZE IV PRN (08:50)
[2019-03-18] MEDS ORDERED: NORCO 5/325 PO PRN (08:52)
--- NOTE | 2019-03-18 08:52 | Post Operative Note ---
Date of procedure: 03/18/19 Pre-op diagnosis: metastatic colon cancer Post-op diagnosis: same Findings: good placement of port without PTX on post op CXR Procedure: Left internal jugular infusaport placement with ultrasound guidance, fluoroscopy Anesthesia: FELIXA, local Surgeon: GRACIELA ROJO Estimated blood loss: minimal Pathology: none Condition: stable Disposition: PACU
--- NOTE | 2019-03-18 08:52 | Anesthesia Day of Surgery ---
Anesthesia Day of Surgery - Day of Surgery Patient Examined: Yes Patient H&P Reviewed: Yes Patient is NPO: Yes
--- NOTE | 2019-03-18 08:52 | Anesthesia Consultation ---
Anesthesia Consult and Med Hx Date of service: 03/18/19 - Airway Anesthetic Teeth Evaluation: Good ROM Head & Neck: Adequate Mental/Hyoid Distance: Adequate Mallampati Class: Class III Intubation Access Assessment: Possibly Difficult - Pulmonary Exam CTA: Yes - Cardiac Exam Cardiac Exam: RRR - Pre-Operative Health Status ASA Pre-Surgery Classification: ASA3 Proposed Anesthetic Plan: General - Pulmonary Hx Smoking: No Hx Respiratory Symptoms: Yes (presented with SOB; now resolved) - Cardiovascular System Hx Hypertension: Yes Hx Heart Attack/AMI: No Hx Percutaneous Transluminal Coronary Angioplasty (PTCA): No - Central Nervous System Hx Seizures: No CVA: No - Gastrointestinal Hx Gastroesophageal Reflux Disease: No - Endocrine Hx Renal Disease: No Hx Liver Disease: No Hx Non-Insulin Dependent Diabetes: Yes Hx Thyroid Disease: No - Hematic Hx Anemia: Yes - Other Systems Hx Cancer: Yes (metastatic colon cancer) - Additional Comments Anesthesia Medical History Comments: No hx anesthetic complications. Negative cardiac work up this admission.
--- NOTE | 2019-03-18 08:54 | Fluoroscopy Report ---
FLUOROSCOPY CENTRAL VENOUS DEVICE PLACEMENT History: Colon cancer, Rqoqyx-e-[id number] insertion. Findings: Single AP view of the chest is presented. A left IJ Oakwni-c-Eqvq has been inserted which terminates in the right atrium. No evidence for pneumothorax. Subtle left hilar mass is again noted. The lungs are clear otherwise. Normal heart size and pulmonary vessels. The bony structures are unremarkable. Impression: Left IJ Qfjios-a-Ewqi insertion as described. No pneumothorax.
--- NOTE | 2019-03-18 09:25 | Discharge Summary ---
Providers - Providers Date of Admission: 03/10/19 08:35 Date of discharge: 03/18/19 Attending physician: DUANE MARTIN 03/09/19 Consult to Cardiac Rehabilitation [CONS] Routine Reason For Exam: Phase I 03/11/19 20:51 Consult to Physician [CONS] Routine Comment: Consulting Provider: MAIK MADERA Physician Instructions: Reason For Exam: sigmoid mass with possible mets to liver 03/16/19 09:51 Consult to Physician [CONS] Routine Comment: Consulting Provider: JIN ISAACS Physician Instructions: Reason For Exam: Invasive adenocarcinoma of the colon 03/16/19 09:52 Consult to Physician [CONS] Routine Comment: Consulting Provider: HUA MARQUES Physician Instructions: Reason For Exam: invasive adeno Ca of the colon Primary care physician: DUANE MARTIN Hospitalization Reason for admission: chest discomfort, palpitations, shortness of breath, diaphoresis. Condition: Critical Pertinent studies: CXR that was unremarkable. Stress test was normal CT angina and was unremarkable for any PE CT abdomen and pelvis showed multiple liver nodules sigmoid mass Colonoscopy with biopsy Procedures: Colonoscopy with biopsy. Report was remarkable for a colonic polyp was excised. Biopsy results was remarkable for invasive adenocarcinoma of the colon with possible metastases to the liver PORT placement for chemotherapy Hospital course: Patient is a 58-year-old gentleman who has a history of diabetes mellitus, acoustic neuroma with loss of hearing on the right ear, hypertension and has been having occasional palpitations for many months presented to the emergency Department on account of worsening palpitation with dyspnea on exertion with diaphoresis. Patient who was seen in the Urgent Care was advised to proceed to the emergency department. Has occasional chest pain. No orthopnea or paroxysmal nocturnal dyspnea. Denies any polyuria, polydipsia or polyphagia. No fever, nausea, vomiting or abdominal pain. I did on presentation to the emergency department pulse was found to be 128. EKG shows sinus tachycardia. There are no ST segment changes. Blood sugar was 176. Total bilirubin was 2.0. Total CK was 309. Troponin T was 0.01. BNP was 22.7. TSH and T4 were normal. Urinalysis showed concentrated urine with urine specific gravity of 1.033. Glycosuria over 500. Urine drug screen was negative. Patient was commenced on oxygen and nitroglycerin and morphine. Tenderness consult was obtained. Stress test was done. Result was normal. D-dimer was obtained. Result was elevated. CT angiogram of the chest was done because of persistent tachycardia despite normal stress test. Results showed some hepatic nodules. CT abdomen and pelvis was done. Colonic mass identified. Hepatic nodules and S2 noted. GI consult was obtained. Colonoscopy was done. Excision of the sigmoid polyp was done. Pathology report of the excised polyp showed invasive adenocarcinoma with possible metastases to the colon. Oncology consult was obtained as well as surgical consult was obtained. After extensive discussion chemotherapy only was decided amongst all the attendings. A port was placed. Patient is a 4 been discharged today to follow up with oncologist for continued chemotherapy. He is to follow-up her primary care physician in 5 days and oncologist in 1-2 days. Discussed extensively with the patient's sister who is a nurse, at the request of the patient's as well as the patient'sat all stages of his managemtent. At the request of the patient's + EKG 03/08/19: Showed sinus tachycardia at 144/min + Lexiscan stress test 03/09/19: Showed no evidence of ischemia + Echocardiogram 03/09/19: Normal left ventricular function and ejection fraction of 55-60% with impaired relaxation + CT angio 03/09/19: Showed multiple nodularity and attenuation in the liver with enlarged head of pancreas. CT abdomen and pelvis adviced for rachelle eval + CT abdomen and pelvis showed sigmoid colon mass with possible mets to the liver + Colonoscopy 03/13/19 report: Scattered diverticulosis of the entire colon * 15mm semi-sessile polyp of the sigmoid colon. Completely resected using saline injection-lift (2cc NS) and hot snare polypectomy. The post polypectomy site was closed using a single hemoclip to prevent bleeding * The opposite side of the colon at the level of the polyp (About 40cm from anus) was edematous. Biopsies taken + Biospy report came back 03/16/19 as invasive adenocarcinoma of the colon. Still has an extrinsic portion. Discussed extensively with the surgeon and oncologist. Agreed on chemotherapy with no surgical intervention. +03/18/19. Ports placed for chemotherapy and discharged thereafter Disposition: - TO HOME OR SELFCARE Time spent for discharge: 40 mins - Discharge Diagnoses (1) Chest discomfort Status: Acute (2) Colon cancer metastasized to liver Status: Acute (3) SHAFFER (dyspnea on exertion) Status: Acute (4) Dehydration Status: Acute (5) Hyperbilirubinemia Status: Acute (6) Palpitations Status: Acute (7) Tachycardia Status: Acute (8) Acoustic neuroma Status: Chronic (9) Adenocarcinoma in adenomatous polyp Status: Acute (10) Diverticulosis Status: Acute Core Measure Documentation - Palliative Care Palliative Care/ Comfort Measures: Not Applicable - Core Measures Any of the following diagnoses?: none Exam - Physical Exam Narrative exam: Constitutional: Well-nourished well-developed. In no distress Head: Normocephalic atraumatic Eyes: Pupils are equal round and reactive to ligh. Right facial palsy. Nose: No enlarged turbinates, no septal deviation. Mouth: Moist mucous membranes. Neck: Supple no thyromegaly. No bruit. No JVD Heart: Regular rate and rhythm, S1-S2 normal. No rubs murmurs or gallop Lungs: Clear to auscultation bilaterally. no rales or rhonchi Abdomen: Soft, nontender. Bowel sound are present. Extremities: No edema, no cyanosis, no clubbing. Neuro: Alert oriented Oriented x3. No focal sensory or motor deficit. Skin: No rashes or hyperpigmented spots Musculoskeletal system: No joint pain or swelling Hematological: No petechia or subcutanous hemorrhages. Immunological: No multiple septic spots on the skin Lymphatic: No generalized lymphadenopathy Psychiatry: Euthymic. Calm. - Constitutional Vitals: Temp Pulse Resp BP Pulse Ox 98 F 93 H 16 142/83 98 03/18/19 08:49 03/18/19 09:00 03/18/19 09:00 03/18/19 09:00 03/18/19 09:00 Plan Activity: fall precautions Weight Bearing Status: Non-Weight Bearing Diet: diabetic Follow up with: GRACIELA ROJO DO [Staff Physician] - 14 Days DUANE MARTIN MD [Primary Care Provider] - 3-5 Days Prescriptions: Atorvastatin 20 mg PO HS #30 MDD 20 HYDROcodone/ACETAMINOPHEN [Hydrocodone-Acetamin 5-325 mg] 1 each PO Q8H #20 tablet HYDROcodone/APAP 5-325 [[place] 5-325 mg TAB] 1 each PO Q6H PRN #20 tablet PRN Reason: Pain, Moderate (4-6) Lisinopril [Zestril TAB] 5 mg PO QDAY #30 tablet
--- NOTE | 2019-03-18 10:44 | Operative Report ---
Operative Report Operative Report: Date of procedure: 03/18/19 Pre-op diagnosis: metastatic colon cancer Post-op diagnosis: same Findings: good placement of port without PTX on post op CXR Procedure: Left internal jugular infusaport placement with ultrasound guidance, fluoroscopy Anesthesia: TONY local Surgeon: GRACIEAL ROJO Estimated blood loss: minimal Pathology: none Condition: stable Disposition: PACU Procedure in detail: The patient was identified in the preoperative area, taken back to operating room, placed on operating table in supine position. After anesthesia was induced both arms were tucked and upper chest and neck were prepped and draped in usual sterile fashion. A timeout was performed. The was placed in Trendelenburg position. Local anesthetic was infiltrated into the skin at the intended puncture site. The LEFT subclavian vein was visualized on ultrasound and THREE attempts were made at access. The vein was deep and could not be accessed safely. The LEFT internal jugular vein was identified on ultrasound and was accessed on the first stick. There was return of dark red, nonpulsatile blood. A glidewire was threaded under fluoroscopy without resistance and positioning confirmed. The needle was then removed. Using a 15 blade, an incision was made in the LEFT upper chest and dissection carried down through the skin and subcutaneous tissue using Bovie electrocautery. Hemostasis was achieved along the way. A pocket for the port was then created bluntly and with electrocautery. The catheter was flushed and tunneled from the pocket to the wire. A breakaway catheter/dilator sheath then inserted over the wire under fluoroscopy, and the wire and dilator removed. The catheter was then inserted through the breakaway catheter which was then removed. The catheter sat flush under the skin. Using continuous fluoroscopy, the catheter was pulled back until the tip was visualized in the right atrium. The catheter was then cut to size and the port attached in the usual fashion. The port was then sutured into place to the pre-pectoral fascia using 2-0 Vicryl interrupted sutures. The wound was irrigated and hemostasis ensured. The port was tested with heparinized saline and there was return of blood and it flushed easily. The port was then instilled with 3000 units of heparin. The deep dermal layer was then closed with interrupted 3-0 Vicryl stitches. The skin incisions were closed with 4-0 Monocryl subcuticular stitches and skin glue. Intraoperative chest x-ray did show good positioning of the port, without evidence of pneumothorax. At the end of the case, all sponge, instrument, sharp counts were correct 2. The patient was awoken from anesthesia and taken to PACU in stable condition.
--- NOTE | 2019-03-18 14:41 | Post Anesthesia Evaluation ---
- Post Anesthesia Evaluation Patient Participated: Yes Airway Patent: Yes Stable Respiratory Function: Yes Nausea/Vomiting: No Temp > 96.8F: Yes Pain Manageable: Yes Adequeate Hydration: Yes Anesthesia Complications: No
[2019-03-18] MEDS: ZESTRIL PO SCH (18:09)
[2019-03-18 22:03] VITALS: BP 144/84
== END 2019-03-18 19:40 | disposition home or self-care (01) | DRG 375 ==
LOC: ED 17:44 → 4A 22:16 → OBSVTOIN 03-10 08:35
PROVIDERS: ADMIT Family Medicine; ATTEND Family Medicine
PROC: 0DBN8ZZ Excision of Sigmoid Colon, Via Natural or Artificial Opening Endoscopic (ICD-10-PCS; principal; 2019-03-13)
PROC: 02H633Z Insertion of Infusion Device into Right Atrium, Percutaneous Approach (ICD-10-PCS; 2019-03-18)
PROC: B2141ZZ Fluoroscopy of Right Heart using Low Osmolar Contrast (ICD-10-PCS; 2019-03-18)
PROC: B544ZZA Ultrasonography of Left Jugular Veins, Guidance (ICD-10-PCS; 2019-03-18)
PROC: 0JH63XZ Insertion of Tunneled Vascular Access Device into Chest Subcutaneous Tissue and Fascia, Percutaneous Approach (ICD-10-PCS; 2019-03-18)
DX: C18.9 Malignant neoplasm of colon, unspecified (principal); C78.7 Secondary malignant neoplasm of liver and intrahepatic bile duct; K57.90 Diverticulosis of intestine, part unspecified, without perforation or abscess without bleeding; R00.0 Tachycardia, unspecified; E86.0 Dehydration; I10 Essential (primary) hypertension; E11.9 Type 2 diabetes mellitus without complications; K64.8 Other hemorrhoids; E80.6 Other disorders of bilirubin metabolism; D33.3 Benign neoplasm of cranial nerves; E78.5 Hyperlipidemia, unspecified; Z72.89 Other problems related to lifestyle
CPT/HCPCS: 36415; 71046; 71275; 74178; 77001; 78452; 80048; 80053; 80061; 80307; 81001; 82378; 82550; 82553; 82962; 83880; 84153; 84439; 84443; 84484; 85025; 85379; 85610; 88305; 93005; 93010; 93017; 93306; G0378; A9502; C1788; J1644; J1650; J2250; J2405; J2704; J2785; J3010; J7030; J7040; Q9967